=== PATIENT | female | born 1950 | race Caucasian/White ===

== ENCOUNTER 2017-02-16 07:46 | Outpatient (CLI) | payer MEDICARE ==
[2017-02-16 11:03] LABS: ALBUMIN/GLOBULIN RATIO 1.1 (1.0-2.2); BILIRUBIN,TOTAL 0.5 mg/dL (0.2-1.0); BUN - BLOOD UREA NITROGEN 16 mg/dL (6-20); CALCIUM 9.2 mg/dL (8.5-10.3); CARBON DIOXIDE - CO2 30 mmol/L (21-32); CHLORIDE 100 mmol/L (101-111); CHOL/HDL RATIO 5.9 (<4.4); CHOLESTEROL 248 mg/dL; CREATININE 0.7 mg/dL (0.4-1.0); GFR - MDRD 84 (>89); GLUCOSE 177 mg/dL (70-100); HDL CHOLESTEROL 42 mg/dL; POTASSIUM 4.1 mmol/L (3.5-5.0); SODIUM 138 mmol/L (135-145); TOTAL PROTEIN 7.6 g/dL (6.7-8.2); TRIGLYCERIDES 180 mg/dL; VLDL CHOLESTEROL 36 mg/dL
[2017-02-16 11:11] LABS: HEMOGLOBIN A1C 1.35 g/dL
== END 2017-02-16 07:47 | disposition home or self-care (01) ==
LOC: LAB.F 07:46
PROVIDERS: ATTEND Family Medicine
DX: I10 Essential (primary) hypertension (principal); E11.9 Type 2 diabetes mellitus without complications; E78.5 Hyperlipidemia, unspecified
CPT/HCPCS: 36415; 80053; 80061; 82043; 83036

== ENCOUNTER 2017-05-17 12:49 | Outpatient (CLI) | payer MEDICARE ==
[2017-05-17 18:49] LABS: HEMOGLOBIN A1C 0.95 g/dL
[2017-05-17 18:50] LABS: CALCIUM 9.4 mg/dL (8.5-10.3); CREATININE 0.8 mg/dL (0.4-1.0); POTASSIUM 4.2 mmol/L (3.5-5.0)
== END 2017-05-17 12:50 | disposition home or self-care (01) ==
LOC: LAB.F 12:49
PROVIDERS: ATTEND Family Medicine
DX: I10 Essential (primary) hypertension (principal); E11.9 Type 2 diabetes mellitus without complications
CPT/HCPCS: 36415; 80048; 83036

== ENCOUNTER 2017-08-23 07:12 | Outpatient (CLI) | payer MEDICARE ==
[2017-08-23 11:01] LABS: CALCIUM 9.5 mg/dL (8.5-10.3); CREATININE 0.8 mg/dL (0.4-1.0); POTASSIUM 4.2 mmol/L (3.5-5.0)
[2017-08-23 11:13] LABS: HEMOGLOBIN A1C 0.75 g/dL
== END 2017-08-23 07:13 | disposition home or self-care (01) ==
LOC: LAB.F 07:12
PROVIDERS: ATTEND Family Medicine
DX: I10 Essential (primary) hypertension (principal); E11.9 Type 2 diabetes mellitus without complications
CPT/HCPCS: 36415; 80048; 83036

== ENCOUNTER 2017-09-22 19:31 | Emergency (ER) | payer MEDICARE ==
--- NOTE | 2017-09-22 20:07 | ED Physician Documentation ---
PD HPI NVD - Stated complaint Stated Complaint: NAUSEA - Chief complaint Chief Complaint: General - History obtained from History obtained from: Patient - History of Present Illness Timing - onset: Enter time (17:30), Today Timing - details: Abrupt onset Pain level max: 4 Pain level now: 0 Associated symptoms: Chest pain Improved by: Other (no amelioraing factors) Worsened by: Other (no exacerbating factors) Similar symptoms before: Has not had sx before Recently seen: Not recently seen - Additonal information Additional information: immediately after dinner tonight, patient experienced nausea, "cold and sweating " (per patient), and epigastric/low mid-line chest discomfort. 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 She checked her blood sugar at approximately 6 PM, was 171, took 30 U insulin. Patient expresses strong suspicion that this was a reaction to shellfish in the bouillebaise she had tonight, although she has not had a shellfish allergy in the past. She says her relative recently had severe shellfish allergies despite not having them in the past and this is why she believes this is the cause of tonight's symptoms Review of Systems Constitutional: reports: Chills, Fatigue, Sweats. denies: Fever Cardiac: reports: Chest pain / pressure. denies: Palpitations, Pedal edema, Calf pain Respiratory: reports: Reviewed and negative GI: reports: Nausea. denies: Abdominal Pain, Vomiting, Constipation, Diarrhea : denies: Dysuria, Frequency PD PAST MEDICAL HISTORY - Past Medical History Cardiovascular: Hypertension, High cholesterol Respiratory: None Endocrine/Autoimmune: Type 2 diabetes GI: None : None HEENT: None Psych: None Musculoskeletal: Osteoarthritis Derm: None - Past Surgical History Past Surgical History: Yes Ortho: Other HEENT: Cataracts - Present Medications Home Medications: Ambulatory Orders Medication Instructions Recorded Confirmed HYDROcod/ACETAM 5/325 [Vicodin 1 - 2 ea PO Q6H PRN #15 tablet 05/27/14 12/05/14 5/325] Insulin NPH Human Isophane 30 units ABBOJECT TID 05/27/14 12/05/14 [Humulin N] Lisinopril 10 mg PO DAILY 05/27/14 12/05/14 [place]-3/Dha/Epa/Fish Oil [Fish Oil] 500 mg PO DAILY 05/27/14 12/05/14 metFORMIN [Glucophage] 1,000 mg PO BID 05/27/14 12/05/14 Aspirin [Aspir 81] 81 mg PO DAILY 06/07/14 12/05/14 HYDROcod/ACETAM 5/325 [Vicodin 1 ea PO Q6H PRN #15 tablet 12/05/14 5/325] Ibuprofen 600 mg PO Q6HR PRN #20 tablet 12/05/14 - Allergies Allergies/Adverse Reactions: Allergies Allergy/AdvReac Type Severity Reaction Status Date / Time Ejgcita-Lio-Fpp Reductase AdvReac Anxiety Verified 09/22/17 19:41 Inhibitor - Social History Does the pt smoke?: No Smoking Status: Never smoker Does the pt drink ETOH?: Yes Does the pt have substance abuse?: No PD ED PE NORMAL - Vitals Vital signs reviewed: Yes - General General: Alert and oriented X 3, No acute distress, Well developed/nourished - HEENT HEENT: Moist mucous membranes - Neck Neck: Supple, no meningeal sign - Cardiac Cardiac: RRR, No murmur, No gallop, No rub - Respiratory Respiratory: No respiratory distress, Clear bilaterally - Abdomen Abdomen: Soft, Non tender - Derm Derm: Normal color, Warm and dry, No rash - Extremities Extremities: No edema - Neuro Neuro: Alert and oriented X 3 Results - Vitals Vitals: Vital Signs - 24 hr 09/22/17 09/22/17 09/22/17 19:35 20:34 21:27 Temperature 36.3 C L Heart Rate 72 72 71 Respiratory 18 17 17 Rate Blood Pressure 145/69 H 127/52 L 123/55 L O2 Saturation 98 96 95 Oxygen O2 Source Room air - EKG (time done) No standard instances Rate: Rate (enter#) (66) Rhythm: NSR [place]: Normal Intervals: Wide QRS, RBBB QRS: Normal Ischemia: Normal ST segments - Labs Labs: Laboratory Tests 09/22/17 09/22/17 09/22/17 21:17 21:17 21:17 WBC 12.9 H RBC 4.30 Hgb 12.9 Hct 39.0 MCV 90.7 MCH 30.0 MCHC 33.1 RDW 13.3 Plt Count 383 MPV 6.6 L Neut # 10.2 H Lymph # 2.0 [place] # 0.6 Eos # 0.1 Baso # 0.1 Absolute Nucleated RBC 0.00 Nucleated RBC % 0.0 Sodium 137 Potassium 3.7 Chloride 100 L Carbon Dioxide 26 Anion Gap 11.0 BUN 19 Creatinine 0.6 Estimated GFR (MDRD) 100 Glucose 173 H Calcium 9.2 Troponin I < 0.04 PD MEDICAL DECISION MAKING - ED course Complexity details: reviewed results, re-evaluated patient, considered differential, d/w patient Departure - Departure Disposition: 01 Home, Self Care Clinical Impression: Nausea Condition: Good Instructions: ED Chest Pain Atypical Unkn Cause, ED Nausea Vomiting Follow-Up: NADEEN TOVAR MD [Primary Care Provider] - Comments: The cause of your symptoms is not clear at this time, but your test results are reassuring and do not indicate the need for admission to the hospital or further testing in the emergency department. You should follow-up with your primary care provider, as they might recommend further testing in the outpatient setting. Discharge Date/Time: 09/22/17 22:53
[2017-09-22 21:27] VITALS: BP 123/55
[2017-09-22 21:32] LABS: BASOPHILS # (AUTO) 0.1 10^3/uL (0.0-0.1); BASOPHILS % (AUTO) 0.9 %; EOSINOPHILS # (AUTO) 0.1 10^3/uL (0.0-0.7); EOSINOPHILS % (AUTO) 0.7 %; HGB - HEMOGLOBIN 12.9 g/dL (12.0-16.0); LYMPHOCYTES % (AUTO) 15.2 %; MEAN CORPUSCULAR HGB CONC 33.1 g/dL (32.0-36.0); MEAN CORPUSCULAR VOLUME 90.7 fL (81.0-99.0); MEAN PLATELET VOLUME 6.6 fL (7.9-10.8); MONOCYTES # (AUTO) 0.6 10^3/uL (0.0-1.0); MONOCYTES % (AUTO) 4.3 %; NEUTROPHILS # (AUTO) 10.2 10^3/uL (1.5-6.6); NEUTROPHILS % (AUTO) 78.9 %; RED CELL DISTRIBUTION WIDTH 13.3 % (12.0-15.0); UNCORRECTED WHITE BLOOD COUNT 12.9 x10^3/uL; WHITE BLOOD COUNT 12.9 x10^3/uL (4.8-10.8)
[2017-09-22 21:38] LABS: CALCIUM 9.2 mg/dL (8.5-10.3); CREATININE 0.6 mg/dL (0.4-1.0); POTASSIUM 3.7 mmol/L (3.5-5.0)
== END 2017-09-22 22:53 | disposition home or self-care (01) ==
LOC: ED 19:31
DX: R07.9 Chest pain, unspecified (principal); R11.0 Nausea; R10.13 Epigastric pain; I10 Essential (primary) hypertension; E78.00 Pure hypercholesterolemia, unspecified; E11.9 Type 2 diabetes mellitus without complications; Z79.4 Long term (current) use of insulin; M19.90 Unspecified osteoarthritis, unspecified site
CPT/HCPCS: 36415; 80048; 84484; 85025; 93005; 99283

== ENCOUNTER 2017-10-02 08:04 | Outpatient (CLI) | payer MEDICARE ==
--- NOTE | 2017-10-02 21:22 | Ultrasound Report ---
EXAM: ABDOMEN ULTRASOUND EXAM DATE: 10/02/2017 09:18 AM. CLINICAL HISTORY: ABDOMINAL PAIN. COMPARISON: None. TECHNIQUE: Real-time scanning was performed with static images obtained. FINDINGS: Liver: Normal in size and echotexture. 16 cm. Main portal vein flow: Hepatopetal. Gallbladder: There is cholelithiasis. The gallbladder is distended. There is no evidence of significa nt gallbladder wall thickening. Negative sonographic Valderrama sign. Biliary System: Common bile duct measures 4 mm. No intrahepatic or extrahepatic ductal dilatation. Pancreas: Visualized portion is unremarkable. Kidneys: Right: 12.0 cm longitudinally. Normal. No contour-deforming mass, stones, or hydronephrosis. There is a small exophytic cyst. Left: 11.2 cm longitudinally. Normal. No contour-deforming mass, stones, or hydronephrosis. Spleen: 9.5 cm. Normal in size and echotexture. Aorta and Inferior Vena Cava: Unremarkable. Other: None. IMPRESSION: 1. There is cholelithiasis. The gallbladder is filled with stones and sludge. There is no evidence of significant gallbladder wall thickening. Negative sonographic Valderrama sign. 2. No intra-or extrahepatic bile duct dilatation. [facility] Referring Provider Line: [phone] SITE ID: [id number]
== END 2017-10-02 08:05 | disposition home or self-care (01) ==
LOC: DI 08:04
PROVIDERS: ATTEND Family Medicine
DX: K80.20 Calculus of gallbladder without cholecystitis without obstruction (principal)
CPT/HCPCS: 76700

== ENCOUNTER 2018-03-13 02:38 | Day surgery (SDC) | payer MEDICARE ==
[2018-03-13] MEDS ORDERED: ONDANSETRON 4 MG/2 ML VIAL IVP STA ×2 (02:58→04:38)
[2018-03-13] MEDS ORDERED: SODIUM CHLORIDE 0.9% 1,000 ML IV ONE ×2 (02:58→04:40)
[2018-03-13] MEDS ORDERED: MORPHINE 10 MG/ML VIAL IVP STA ×3 (02:58→09:25)
--- NOTE | 2018-03-13 02:59 | ED Physician Documentation ---
PD HPI ABD PAIN - Stated complaint Stated Complaint: UPPER ABD PAIN - Chief complaint Chief Complaint: Abd Pain - History obtained from History obtained from: Patient - History of Present Illness Timing - onset: How many days ago (3) Timing - details: Gradual onset, Still present Quality: Cramping, Aching Location: RUQ Associated symptoms: Nausea, Vomiting. No: Fever Similar symptoms before: Work up / diagnostics, Treatment Recently seen: Not recently seen - Additional information Additional information: Patient is a 68 year old female with a history of diabetes, high blood pressure , and biliary colic who is presenting to the emergency department for abdominal pain. patient states that she was supposed to have her gallbladder removed but she put it off because her daughter was sick with the flu. Patient states that she was pretty good for awhile when she switched to a vegan diet. patient states that ever since her birthday she reverted back to a normal diet. Patient states that for the last 4 days she has had right upper quadrant pain, nausea and vomiting. Patient states that she has not eaten much due to the pain. Review of Systems Constitutional: reports: Chills, Sweats Cardiac: denies: Chest pain / pressure Respiratory: denies: Dyspnea GI: reports: Abdominal Pain, Nausea, Vomiting : denies: Dysuria, Frequency Neurologic: denies: Generalized weakness, Focal weakness Immunocompromised: denies: Immunocompromised PD PAST MEDICAL HISTORY - Past Medical History Cardiovascular: Hypertension, High cholesterol Respiratory: None Endocrine/Autoimmune: Type 2 diabetes GI: None : None HEENT: None Psych: Depression Musculoskeletal: Osteoarthritis Derm: None - Past Surgical History Past Surgical History: Yes Ortho: Other HEENT: Cataracts - Present Medications Home Medications: Ambulatory Orders Medication Instructions Recorded Confirmed Insulin NPH Human Isophane 20 units ABBOJECT BID 05/27/14 10/20/17 [Humulin N] Lisinopril 10 mg PO DAILY 05/27/14 10/20/17 [place]-3/Dha/Epa/Fish Oil [Fish Oil] 500 mg PO DAILY 05/27/14 10/20/17 metFORMIN [Glucophage] 1,000 mg PO BID 05/27/14 10/20/17 Aspirin [Aspir 81] 81 mg PO DAILY 06/07/14 10/20/17 Turmeric Root Extract [Turmeric] 500 mg PO DAILY 10/20/17 10/20/17 - Allergies Allergies/Adverse Reactions: Allergies Allergy/AdvReac Type Severity Reaction Status Date / Time Ysrngjb-Ehk-Kkp Reductase AdvReac Anxiety Verified 03/13/18 02:46 Inhibitor - Social History Does the pt smoke?: No Smoking Status: Never smoker Does the pt drink ETOH?: Yes Does the pt have substance abuse?: No Substance Use and Type: Marijuana PD ED PE NORMAL - Vitals Vital signs reviewed: Yes - General General: Alert and oriented X 3 - HEENT HEENT: Atraumatic, PERRL - Neck Neck: Supple, no meningeal sign - Cardiac Cardiac: RRR - Respiratory Respiratory: No respiratory distress - Derm Derm: Normal color, Warm and dry - Extremities Extremities: No deformity - Neuro Neuro: Alert and oriented X 3 Eye Opening: Spontaneous Motor: Obeys Commands Verbal: Oriented GCS Score: 15 PD ED PE EXPANDED - HEENT HEENT: Dry mucous membranes - Abdomen Abdomen: Tender to palpation, RUQ. No: Rebound, Guarding Results - Vitals Vitals: Vital Signs - 24 hr 03/13/18 02:43 Temperature 36.3 C L Heart Rate 84 Respiratory 16 Rate Blood Pressure 154/65 H O2 Saturation 98 Oxygen O2 Source Room air - EKG (time done) 0258 Rate: Rate (enter#) (77) Rhythm: NSR Intervals: RBBB Ischemia: Normal ST segments Compare to prior EKG: Unchanged from prior EKG - Labs Labs: Laboratory Tests 03/13/18 03/13/18 03/13/18 02:53 02:53 02:53 WBC 15.7 H RBC 4.35 Hgb 13.6 Hct 40.8 MCV 93.7 MCH 31.2 H MCHC 33.3 RDW 13.3 Plt Count 397 MPV 6.5 L Neut # (Auto) 11.9 H Lymph # (Auto) 2.4 [place] # (Auto) 1.3 H Eos # (Auto) 0.0 Baso # (Auto) 0.1 Absolute Nucleated RBC 0.00 Nucleated RBC % 0.0 Sodium 131 L Potassium 3.9 Chloride 92 L Carbon Dioxide 28 Anion Gap 11.0 BUN 10 Creatinine 0.6 Estimated GFR (MDRD) 100 Glucose 144 H Lactic Acid Calcium 9.2 Total Bilirubin 0.9 Direct Bilirubin 0.1 AST 16 ALT 22 Alkaline Phosphatase 80 Troponin I < 0.04 Total Protein 8.2 Albumin 3.8 Globulin 4.4 H Albumin/Globulin Ratio 0.9 L Lipase 27 Urine Color Urine Clarity Urine pH Ur Specific [place] Urine Protein Urine Glucose (UA) Urine Ketones Urine Occult Blood Urine Nitrite Urine Bilirubin Urine Urobilinogen Ur Leukocyte Esterase Urine RBC Urine WBC Ur Squamous Epith Cells Urine Bacteria Ur Microscopic Review 03/13/18 03/13/18 03:05 03:11 WBC RBC Hgb Hct MCV MCH MCHC RDW Plt Count MPV Neut # (Auto) Lymph # (Auto) [place] # (Auto) Eos # (Auto) Baso # (Auto) Absolute Nucleated RBC Nucleated RBC % Sodium Potassium Chloride Carbon Dioxide Anion Gap BUN Creatinine Estimated GFR (MDRD) Glucose Lactic Acid 0.9 Calcium Total Bilirubin Direct Bilirubin AST ALT Alkaline Phosphatase Troponin I Total Protein Albumin Globulin Albumin/Globulin Ratio Lipase Urine Color YELLOW Urine Clarity CLEAR Urine pH 5.5 Ur Specific [place] 1.025 Urine Protein NEGATIVE Urine Glucose (UA) NEGATIVE Urine Ketones >=80 H Urine Occult Blood NEGATIVE Urine Nitrite NEGATIVE Urine Bilirubin NEGATIVE Urine Urobilinogen 0.2 (NORMAL) Ur Leukocyte Esterase TRACE H Urine RBC 0-5 Urine WBC 6-10 H Ur Squamous Epith Cells MOD Squamous H Urine Bacteria Few Ur Microscopic Review INDICATED - Rads (name of study) ct abd pelvis Radiology: Final report received PD MEDICAL DECISION MAKING - ED course Complexity details: reviewed old records, reviewed results, re-evaluated patient , considered differential, d/w patient, d/w senior talent management consultant ED course: Patient was seen and examined at bedside. IV access was gained and labs were drawn. Patient was started on a fluid bolus and was treated with zofran and morphine. Imaging was ordered. When patient returned from imaging the results were reviewed. Patient was treated with toradol and additional fluids. Patient 's findings were consistent with acute cholecystitis. Dr. Steven, seasonal greenery bundler surgeon was contacted and the case was discussed with him. He stated that the patient should be treated with antibiotics and he would take her to the OR later today. - Sepsis Event Vital Signs: Vital Signs - 24 hr 03/13/18 02:43 Temperature 36.3 C L Heart Rate 84 Respiratory 16 Rate Blood Pressure 154/65 H O2 Saturation 98 Oxygen O2 Source Room air Departure - Departure Disposition: ED Transfer to [facility] Clinical Impression: Cholecystitis Condition: Stable
[2018-03-13 03:05] LABS: BASOPHILS # (AUTO) 0.1 10^3/uL (0.0-0.1); BASOPHILS % (AUTO) 0.6 %; EOSINOPHILS % (AUTO) 0.2 %; HGB - HEMOGLOBIN 13.6 g/dL (12.0-16.0); LYMPHOCYTES # (AUTO) 2.4 10^3/uL (1.5-3.5); MEAN CORPUSCULAR HEMOGLOBIN 31.2 pg (27.0-31.0); MEAN CORPUSCULAR HGB CONC 33.3 g/dL (32.0-36.0); MEAN CORPUSCULAR VOLUME 93.7 fL (81.0-99.0); MEAN PLATELET VOLUME 6.5 fL (7.9-10.8); MONOCYTES # (AUTO) 1.3 10^3/uL (0.0-1.0); MONOCYTES % (AUTO) 8.5 %; NEUTROPHILS # (AUTO) 11.9 10^3/uL (1.5-6.6); NEUTROPHILS % (AUTO) 75.7 %; PLT - PLATELET COUNT 397 10^3/uL (130-450); RED BLOOD COUNT 4.35 10^6/uL (4.20-5.40); RED CELL DISTRIBUTION WIDTH 13.3 % (12.0-15.0); WHITE BLOOD COUNT 15.7 x10^3/uL (4.8-10.8)
[2018-03-13 03:18] LABS: BILIRUBIN,URINE NEGATIVE (NEGATIVE); CLARITY,URINE CLEAR (CLEAR); GLUCOSE, URINE (UA) NEGATIVE (NEGATIVE); KETONES,URINE (UA) >=80 mg/dL (NEGATIVE); LEUKOCYTE ESTERASE, URINE TRACE (NEGATIVE); NITRITE,URINE NEGATIVE (NEGATIVE); OCCULT BLOOD,URINE NEGATIVE (NEGATIVE); PH,URINE 5.5 PH (5.0-7.5); PROTEIN,URINE NEGATIVE (NEGATIVE); UROBILINOGEN,URINE 0.2 (NORMAL) E.U./dL (NORMAL)
[2018-03-13 03:22] LABS: ALBUMIN 3.8 g/dL (3.2-5.5); ALBUMIN/GLOBULIN RATIO 0.9 (1.0-2.2); BILIRUBIN,DIRECT 0.1 mg/dL (0.1-0.5); BILIRUBIN,TOTAL 0.9 mg/dL (0.2-1.0); CALCIUM 9.2 mg/dL (8.5-10.3); CREATININE 0.6 mg/dL (0.4-1.0); TOTAL PROTEIN 8.2 g/dL (6.7-8.2)
[2018-03-13 03:25] LABS: BACTERIA,URINE Few /HPF (None Seen); RBC,URINE 0-5 /HPF (0-5); SQUAMOUS EPITHELIAL CELL,UR MOD Squamous (<= Few)
[2018-03-13] MEDS ORDERED: IOPAMIDOL-300 100 ML VIAL ONE (03:35)
[2018-03-13] MEDS ORDERED: IOPAMIDOL-300 100 ML VIAL IVP ONE (03:47)
--- NOTE | 2018-03-13 04:32 | CT Preliminary Report ---
Exam: CT ABDOMEN/PELVIS W/ IMPRESSION: 1. CT findings of acute cholecystitis. No pathologic biliary ductal dilation demonstrated at this akash e. 2. No bowel obstruction. Appendix is normal. Average retained colonic fecal material. No kidney stone or hydronephrosis. 3. Indeterminate bilateral adrenal nodules, measuring 2 cm on the right and 1.6 cm on the left. If th e patient has history of malignancy, further assessment could be considered with a PET CT. If there i s no history of prior malignancy, follow-up adrenal protocol CT recommended at 12 months. [facility] SITE ID: [id number]
[2018-03-13] MEDS ORDERED: KETOROLAC 60 MG/2 ML VIAL IVP STA (04:38)
[2018-03-13] MEDS ORDERED: PIPERACILLIN/TAZOBACTAM 3.375 GM in SODIUM CHLORIDE 0.9% MINIBAG 100 ML IV STA (05:51)
--- NOTE | 2018-03-13 06:01 | CT Report ---
EXAM: CT ABDOMEN AND PELVIS EXAM DATE: 03/13/2018 04:04 AM. CLINICAL HISTORY: Epigastric pain, vomiting bile. COMPARISONS: None. TECHNIQUE: Routine helical CT imaging was performed through the abdomen and pelvis. IV contrast: 100 mL Isovue 300. Enteric contrast: No. Reconstructions: Coronal and sagittal. In accordance with CT protocol optimization, one or more of the following dose reduction techniques w ere utilized for this exam: automated exposure control, adjustment of mA and/or KV based on patient s ize, or use of iterative reconstructive technique. FINDINGS: ABDOMEN: Liver: There is mild to moderate hepatic steatosis. Stomach/Distal Esophagus: No significant abnormality. Gallbladder: Distended gallbladder with pericholecystic stranding as well as apparent gallbladder wal l thickening. Slight amount of pericholecystic fluid is noted. Bile Ducts: No significant abnormality. Pancreas: No significant abnormality. Spleen: No significant abnormality. Kidneys: No suspicious solid appearing lesion. There is a 2.4 cm bilobed cyst arising laterally from the right mid to lower kidney. No hydronephrosis. Adrenals: Nodularity of the adrenals noted bilaterally, measuring up to 2 cm on the right (image 18 s eries 3) and up to 1.6 cm on the left (image 24 series 3). These are difficult to characterize on thi s exam. Bowel: No obstruction. Average fecal residual. Appendix: Normal. Lymph Nodes: No pathologically enlarged nodes. Vasculature: Normal caliber aorta. Moderate aortic and branch vessel atherosclerosis. Fluid: No significant free fluid. Abdominal Wall: No significant abnormality. Other: No significant abnormality. PELVIS: Uterus and Ovaries: No significant abnormality. Nonspecific calcification near the external cervical os. Bladder: No significant abnormality. Lymph Nodes: No pathologically enlarged nodes. Fluid: No significant free fluid. Other: None. BONES: No suspicious bony lesions. Moderate multilevel degenerative change within the spine. LOWER CHEST: No significant consolidation or effusion. IMPRESSION: 1. CT findings of acute cholecystitis. No pathologic biliary ductal dilation demonstrated at this akash e. 2. No bowel obstruction. Appendix is normal. Average retained colonic fecal material. No kidney stone or hydronephrosis. 3. Indeterminate bilateral adrenal nodules, measuring 2 cm on the right and 1.6 cm on the left. If th e patient has history of malignancy, further assessment could be considered with a PET CT. If there i s no history of prior malignancy, follow-up adrenal protocol CT recommended at 12 months. [facility] Referring Provider Line: [phone] SITE ID: [id number]
--- NOTE | 2018-03-13 10:13 | CONSULTATION NOTE ---
Referring Provider Name of Referring Provider:: Dr. Pritchard Consult Date: 03/13/18 Chief Complaint - Chief Complaint Chief Complaint: Postprandial RUQ pain History of Present Illness - Admitted From Admitted From:: NOT admitted - OUTPATIENT - History Obtained From Records Reviewed: Yes History obtained from: Patient and chart ([facility]) Exam Limitations: None - History of Present Illness HPI Comment/Other: This very pleasant 68-year-old female was evaluated in room 9 centers emergency department at the request of Dr. Pritchard. The patient had similar symptoms in October of this year when she was evaluated by Dr. Roger and scheduled for surgery. The patient canceled the surgery 2 days prior due to the fact that her daughter came home from college with the flu and she did not want to "take any chances." Back in October her symptoms occurred after a seafood plate and this time symptoms occurred after prime rib and wine. Initially in October she became a vegan and then when her birthday happened she started cheating and kept on cheating. The pain is described as sharp penetrating located in the right upper quadrant without alleviating factors. The pain bothers her enough that she is "scared of eating." Importantly, her last year of heart disease and since that occurred she has lost approximately 50 pounds. History - Past Medical History Cardiovascular: reports: Hypertension, High cholesterol Respiratory: reports: None Endocrine/Autoimmune: reports: Type 2 diabetes GI: reports: None : reports: None HEENT: reports: None Psych: reports: Depression Musculoskeletal: reports: Osteoarthritis Derm: reports: None MRSA Hx?: No - Past Surgical History Ortho: reports: Other HEENT: reports: Cataracts Meds/Allgy - Home Medications Home Medications: Ambulatory Orders Medication Instructions Recorded Confirmed Insulin NPH Human Isophane 20 units SUBQ BID 05/27/14 03/13/18 [Humulin N] Lisinopril 10 mg PO DAILY 05/27/14 03/13/18 metFORMIN [Glucophage] 1,000 mg PO BIDWM 05/27/14 03/13/18 Aspirin [Aspir 81] 81 mg PO DAILY 06/07/14 03/13/18 - Allergies Allergies/Adverse Reactions: Allergies Allergy/AdvReac Type Severity Reaction Status Date / Time Pjabena-Ced-Hxh Reductase AdvReac Anxiety Verified 03/13/18 02:46 Inhibitor Review of Systems - Constitutional Constitutional: denies: Fatigue, Fever, Chills, Malaise - Eyes Eyes: denies: Pain - Ears, Nose & Throat Ears, Nose & Throat: denies: Ear pain - Cardiovascular Cariovascular: denies: Palpitations, Chest pain - Respiratory Respiratory: denies: Cough, Sputum production - Gastrointestinal Gastrointestinal: reports: Abdominal pain (Right upper quadrant.), Reflux/ heartburn. denies: Rectal bleeding, Black stools, Bloody stools, Melvin blood emesis, Coffee grounds emesis - Genitourinary Genitourinary: denies: Dysuria - Neurological Neurological: denies: General weakness, Focal weakness Exam - Vital Signs Reviewed Vital Signs: Yes Vital Signs: Vital Signs x48h Temp Pulse Resp BP Pulse Ox 03/13/18 08:00 37.0 C 78 12 133/61 H 97 03/13/18 06:04 74 03/13/18 05:30 69 16 127/53 L 97 03/13/18 05:00 70 16 124/57 L 97 03/13/18 02:43 36.3 C L 84 16 154/65 H 98 - Physical Exam General Appearance: positive: Mild distress Eyes Bilateral: positive: No lid inflammation, Conjunctivae nml, No scleral icterus ENT: positive: Dry mucous membranes Neck: positive: Trachea midline Respiratory: positive: Chest non-tender, No respiratory distress, Breath sounds nml Cardiovascular: positive: Regular rate & rhythm Abdomen: positive: Tenderness (Right upper quadrant), Abnml bowel sounds ( Slightly decreased). negative: Hepatomegaly, Splenomegaly Skin: positive: Color nml Extremities: positive: Nml appearance Neurologic/Psychiatric: positive: Oriented x3 Conclusion/Plan - Diagnosis Diagnosis: Acute cholecystitis - Plan Plan: Laparoscopic cholecystectomy, possible open cholecystectomy, possible intra- operative cholangiogram, possible common bile duct exploration. The indications , procedure, alternatives including no surgery, ingestion of Actigall, possible risks including infection (deep or superficial), bleeding requiring transfusion (with all of its risks), common bile duct injury requiring repair and additional surgery, and were fully explained to the patient and all questions answered. I also explained the pathophysiology. I explained that following the surgery I did not want her lifting anything over 15 pounds for 6 weeks to allow for optimal healing and to decrease the likelihood that a hernia would occur. She works at the [employer] behind the [employer] All questions were fully answered. Verbal and written consent was obtained. The patient, in preparation for surgery will be nothing by mouth, and receive 2 gm of Cephalexin with induction. I asked her to contact me with any surgical questions and her concerns and she stated that she would. I asked her to let me know if there is any way we can make her stay at [facility] more comfortable and she stated that she would let me know. Please note that an assessment of her risk was done by Dr. Roger in October and this assessment is available in [employer]. It clearly shows that she is at increased risk for complications. The plan is to do this operation as an outpatient procedure and to discharge her home following the procedure. 45 minutes of [id number] time spent with the patient, over 80% in discussion, coordination of her care, and generating the required paperwork - Lab Results Lab results reviewed: Yes Fish Bones: 03/13/18 02:53 03/13/18 02:53 - Diagnostic Imaging Results Diagnostic Imaging Results: positive: Final report reviewed, Read independently - EKG Results EKG Interpreted Independently: No
[2018-03-13] MEDS ORDERED: BUPIVACAINE 0.5% PF 30 ML VIAL ONE (10:38)
[2018-03-13] MEDS ORDERED: LACTATED RINGERS 1,000 ML IV ONE ×2 (10:58→12:47)
[2018-03-13] MEDS ORDERED: BUPIVACAINE 0.5% PF 30 ML VIAL SUBQ ONE (11:21)
[2018-03-13] MEDS ORDERED: fentaNYL 250 MCG/5 ML VIAL IVP ONE (13:00)
[2018-03-13] MEDS ORDERED: MIDAZOLAM 2 MG/2 ML VIAL IVP ONE (13:00)
[2018-03-13] MEDS ORDERED: ROCURONIUM 50 MG/5 ML VIAL IVP ONE (13:00)
[2018-03-13] MEDS ORDERED: PROPOFOL 200 MG/20 ML VIAL IVP ONE (13:00)
--- NOTE | 2018-03-13 13:20 | OPERATIVE REPORT ---
Operative Report - General Procedure Date: 03/13/18 Planned Procedure: Laparoscopic cholecystectomy, possible open cholecystectomy, possible commo Pre-Op Diagnosis: Acute cholecystitis Procedure Performed: Laparoscopic cholecystectomy Umbilical herniorrhaphy Post Op Diagnosis: Acute and chronic cholecystitis, umbilical hernia - Procedure Note Primary Surgeon: Antony Krause MD Anesthesia Provider: René Jaramillo CRNA Anesthesia Technique: General ET tube, Local (30 mL half percent Marcaine) IV Fluids (mL): 1,100 Estimated Blood Loss (mL): 50 Complications: None. - Other Other Information/Narrative: OPERATIVE DESCRIPTION/REPORT: After verbal and written informed consent was obtained detailing the risks of infection, bleeding with all of its risks including transfusion, common bile duct injury, and the patient was brought to the operative suite and placed in the supine position on the operating room table. Monitoring devices were applied along with TEDs and pneumatic compressive stockings. Care was taken to avoid pressure points. Prophylactic antibiotics were given. An adequate level of general endotracheal anesthesia was established by René Jaramillo CRNA. The abdomen was then prepped with ChloraPrep and draped in a sterile fashion. A "time in" then confirmed that the patient was identified with 3 identifiers (name, date and medical record number), the history and physical was in the chart, the signed consent confirming the procedure was in the chart, the patient was in the correct position, the aforementioned prophylactic measures were in place or given, we had the correct personnel and equipment to complete the procedure and that anesthesia, surgery and nursing were given an opportunity to express any concerns. The initial incision was just above the umbilicus and dissection to the linea alba was completed using blunt dissection. A small umbilical hernia was noted and was used to enter the abdomen. The peritoneum was grasped and incised using Metzenbaum scissors. In this location, a 12 mm blunt tipped, balloon tipped port was placed and the balloon was inflated to keep the port in position. The abdominal cavity was insufflated with carbon dioxide to steady- state pressure of 15 mmHg. Three additional 5 mm ports were placed in standard location for laparoscopic cholecystectomy (subxiphoid and 2 right subcostal) under direct vision of the 30 degree laparoscope and without incident. The patient was then placed in reverse Trendelenburg position and was rotated slightly to their left. The gallbladder was completely covered by adhesed omentum as well as the duodenum. Photographs were taken. These adhesions were taken down using tractioncountertraction. The gallbladder was very thick walled and distended and could not be grasped. Due to this reason, a laparoscopic needle was inserted into the gallbladder and very thick brown green bile was removed. The bowel was so thick that it was taking a very long time to empty the gallbladder. As such I made a cholecystostomy with the Bovie and inserted the suction drum straightener into this removing the bile. This left me with strictly a very thick walled gallbladder with stones. The gallbladder fundus was grasped with an atraumatic grasper. Multiple adhesions had to be taken down by blunt and sharp dissection along with electrocautery. Eventually, we identified the infundibulum, and this was then grasped and retracted inferior and laterally. Dissection was then begun in the angle of Calot. The cystic duct and (slightly medially and posteriorly) cystic artery were clearly identified. The critical view was obtained. Two clips proximally and one clip distally were used to control both the cystic duct and cystic artery. The clips were carefully placed to avoid occluding the juncture with the common bile duct. Both the cystic duct and then the cystic artery were then transected with laparoscopic court. The gallbladder was then removed from its fossa in a retrograde fashion using electrocautery. With the 30 degree 5 mm scope in the subxiphoid position, the gallbladder was placed in an EndoCatch bag to be extracted through the 12 mm port site. I irrigated the right upper quadrant with a 2 liters of warm sterile saline, and the area was aspirated dry. I inspected the gallbladder fossa and there was no bleeding or bile leak. Clips on the cystic duct and cystic artery appeared to be secure. I briefly visually explored the abdomen. There was no other evidence of overt pathology. I injected the port sites at the peritoneal, fascial, and skin levels under direct vision with 0.5% Marcaine. The umbilical incision at the skin and fascial level had to be lengthened in order to remove this very thick-walled gallbladder. All ports and the EndoCatch containing the gallbladder were removed. Following gallbladder removal, the remaining carbon dioxide was expelled from the abdomen. The fascia at the umbilicus was reapproximated using a running 0 Vicryl sutures thus repairing the umbilical hernia. The skin at each port site was approximated using a subcuticular 4-0 Monocryl. The surgical count of instruments, needles and sponges was reported as correct twice. Mastisol, Steri -Strips and sterile surgical dressings were applied. The patient was then awakened from anesthesia, extubated, and having tolerated the procedure well, was transported to the recovery room. No complications were encountered. A "time out" confirmed the operation performed, the fluids given, the estimated blood loss and anesthesia, surgery and nursing were given an opportunity to express any concerns.
[2018-03-13 13:33] VITALS: BP 125/52
[2018-03-13] MEDS ORDERED: oxyCOD/ACETAMIN 5 MG/325 MG TABLET PO ONE (13:41)
== END 2018-03-13 09:31 | disposition home or self-care (01) ==
LOC: ED 02:38 → SDS 09:30
PROVIDERS: ATTEND Surgery
PROC: 0FT44ZZ Resection of Gallbladder, Percutaneous Endoscopic Approach (ICD-10-PCS; principal; 2018-03-13 10:00)
DX: K80.12 Calculus of gallbladder with acute and chronic cholecystitis without obstruction (principal); K42.9 Umbilical hernia without obstruction or gangrene; I10 Essential (primary) hypertension; E11.9 Type 2 diabetes mellitus without complications; E78.00 Pure hypercholesterolemia, unspecified; Z79.4 Long term (current) use of insulin; Z79.84 Long term (current) use of oral hypoglycemic drugs; Z79.82 Long term (current) use of aspirin
CPT/HCPCS: 36415; 47562; 74177; 80053; 81001; 82248; 83605; 83690; 84484; 85025; 93005; 96361; 96365; 96375; 96376; 99284; A9270; J3010; J7120; Q9967; 81003; 88304; 99283

== ENCOUNTER 2018-03-21 10:23 | Outpatient (CLI) | payer MEDICARE ==
[2018-03-21 10:46] LABS: BASOPHILS # (AUTO) 0.1 10^3/uL (0.0-0.1); BASOPHILS % (AUTO) 0.9 %; EOSINOPHILS # (AUTO) 0.1 10^3/uL (0.0-0.7); EOSINOPHILS % (AUTO) 0.9 %; HGB - HEMOGLOBIN 12.6 g/dL (12.0-16.0); LYMPHOCYTES # (AUTO) 3.5 10^3/uL (1.5-3.5); MEAN CORPUSCULAR HEMOGLOBIN 30.7 pg (27.0-31.0); MEAN CORPUSCULAR HGB CONC 33.3 g/dL (32.0-36.0); MEAN CORPUSCULAR VOLUME 92.3 fL (81.0-99.0); MEAN PLATELET VOLUME 6.1 fL (7.9-10.8); MONOCYTES # (AUTO) 1.1 10^3/uL (0.0-1.0); MONOCYTES % (AUTO) 8.4 %; NEUTROPHILS # (AUTO) 7.8 10^3/uL (1.5-6.6); NEUTROPHILS % (AUTO) 61.8 %; PLT - PLATELET COUNT 583 10^3/uL (130-450); RED BLOOD COUNT 4.09 10^6/uL (4.20-5.40); RED CELL DISTRIBUTION WIDTH 13.4 % (12.0-15.0); WHITE BLOOD COUNT 12.6 x10^3/uL (4.8-10.8)
[2018-03-21] MEDS ORDERED: IOPAMIDOL-300 50 ML VIAL ONE (10:50)
[2018-03-21] MEDS ORDERED: IOPAMIDOL-300 100 ML VIAL ONE (10:50)
[2018-03-21 11:00] LABS: ALBUMIN 3.7 g/dL (3.2-5.5); ALBUMIN/GLOBULIN RATIO 0.8 (1.0-2.2); BILIRUBIN,TOTAL 0.5 mg/dL (0.2-1.0); CALCIUM 9.4 mg/dL (8.5-10.3); CREATININE 0.6 mg/dL (0.4-1.0); TOTAL PROTEIN 8.4 g/dL (6.7-8.2)
[2018-03-21 11:07] LABS: HEMOGLOBIN A1C 0.6 g/dL; HEMOGLOBIN A1C % 6.1 % (4.6-6.2)
[2018-03-21] MEDS ORDERED: IOPAMIDOL-300 100 ML VIAL IVP ONE (12:14)
[2018-03-21] MEDS ORDERED: IOPAMIDOL-300 50 ML VIAL PO ONE (12:14)
--- NOTE | 2018-03-21 13:55 | CT Report ---
Procedure Date: 03/21/2018 Accession Number: [id number] / [id number] Procedure: CT - Abdomen/Pelvis W/ CPT Code: FULL RESULT: EXAM: Abdomen/Pelvis W/ DATE: 03/21/2018 12:23 PM CLINICAL HISTORY: RUQ ABDOMINAL PAIN COMPARISON: 03/13/2018 CT TECHNIQUE: Routine helical CT imaging was performed through the abdomen and pelvis. IV contrast: 100 cc Isovue-300. Enteric contrast: Yes. Reconstructions: Coronal and sagittal. In accordance with CT protocol optimization, one or more of the following dose reduction techniques were utilized for this exam: automated exposure control, adjustment of mA and/or KV based on patient size, or use of iterative reconstructive technique. FINDINGS: Lung Bases: Unremarkable. Gallbladder/Bile Ducts: Interval cholecystectomy with new surgical clips. Liver: Fatty infiltration as before. New nonenhancing fluid collection within the liver inferiorly near the falciform ligament measuring 5.1 x 4.2 cm axial by 4.4 cm in vertical question biloma, seroma or abscess. Stranding in the perihepatic fat adjacent to this collection may be related to inflammation or postoperative change. A tiny focus of air along the anterior wall of the collection may be postsurgical. Common bile duct measures 6 to 7 mm with questionable wall thickening; pancreatic duct is not dilated. Spleen, Pancreas: Normal. Adrenal Glands: Stable nodularity.. Kidneys: No solid masses or hydronephrosis. Right cyst as before. Peritoneal Cavity/Bowel: Mild stranding right upper quadrant may be secondary to recent surgery versus inflammation. No adenopathy. Pelvic Organs: Stable. Calcification near the external cervical os as before. Vasculature: No aneurysms or other significant abnormality. Bones: Degenerative change and dextroscoliosis as before. Other: None. IMPRESSION: Interval cholecystectomy since 03/13/2018. New 5.1 x 4.2 x 4.4 cm fluid collection in the inferior liver adjacent to the falciform ligament may represent a biloma, early abscess, or seroma. Adjacent stranding in the perihepatic fat secondary to surgery or inflammation. Otherwise stable.
== END 2018-03-21 10:24 | disposition home or self-care (01) ==
LOC: DI 10:23
PROVIDERS: ATTEND Surgery
DX: R10.11 Right upper quadrant pain (principal); E11.9 Type 2 diabetes mellitus without complications; Z90.49 Acquired absence of other specified parts of digestive tract; K76.89 Other specified diseases of liver
CPT/HCPCS: 36415; 74177; 80053; 83036; 85025; Q9967

== ENCOUNTER 2018-03-22 09:06 | Outpatient (CLI) | payer MEDICARE ==
--- NOTE | 2018-03-22 12:37 | Nuclear Medicine Report ---
Procedure Date: 03/22/2018 Accession Number: [id number] / [id number] Procedure: NM - Hepatobiliary HIDA w/o Rx CPT Code: FULL RESULT: EXAM: HEPATOBILIARY SCAN EXAM DATE: 03/22/2018 11:15 AM. CLINICAL HISTORY: ACQUIRED ABSENCE OF OTHER SPECIFIED PARTS OF DIGESTIVE. COMPARISON: CT 03/21/2018 TECHNIQUE: Following the intravenous administration of 4.9 mCi of Tc99m Mebrofenin, a hepatobiliary scan was done centered on the right upper quadrant region in multiple sequential images and projections. Morphine sulfate given: No. Four-hour delayed images performed: No. FINDINGS: Normal extraction of tracer from the blood pool indicating normal hepatocellular function. The liver size and shape is grossly within normal limits. Appearance of tracer in the biliary tree as early as 10 minutes, within normal limits. The gallbladder is not visualized, compatible with reported history of cholecystectomy. Appearance of tracer in the small bowel as early as 10 minutes, within normal limits. No evidence of enteric reflux into the stomach. No significant collection of tracer remaining in the common bile duct by the end of the study. No abnormal radiotracer accumulation in the region of the fluid collection at the inferior liver adjacent to the falciform ligament identified by comparison CT. No evidence of free peritoneal radiotracer accumulation. IMPRESSION: 1. No scintigraphic evidence of active bile leak. 2. Patent common bile duct. RADIA
== END 2018-03-22 09:07 | disposition home or self-care (01) ==
LOC: DI 09:06
PROVIDERS: ATTEND Surgery
DX: Z90.49 Acquired absence of other specified parts of digestive tract (principal)
CPT/HCPCS: 78226

== ENCOUNTER 2018-03-25 10:06 | Outpatient (CLI) | payer MEDICARE ==
[2018-03-25 17:41] LABS: BASOPHILS # (AUTO) 0.1 10^3/uL (0.0-0.1); BASOPHILS % (AUTO) 1.1 %; EOSINOPHILS # (AUTO) 0.3 10^3/uL (0.0-0.7); HGB - HEMOGLOBIN 12.2 g/dL (12.0-16.0); LYMPHOCYTES # (AUTO) 2.5 10^3/uL (1.5-3.5); LYMPHOCYTES % (AUTO) 34.4 %; MEAN CORPUSCULAR HEMOGLOBIN 31.1 pg (27.0-31.0); MEAN CORPUSCULAR HGB CONC 33.1 g/dL (32.0-36.0); MEAN CORPUSCULAR VOLUME 93.8 fL (81.0-99.0); MEAN PLATELET VOLUME 6.7 fL (7.9-10.8); MONOCYTES # (AUTO) 0.6 10^3/uL (0.0-1.0); MONOCYTES % (AUTO) 8.5 %; NEUTROPHILS # (AUTO) 3.8 10^3/uL (1.5-6.6); PLT - PLATELET COUNT 628 10^3/uL (130-450); RED BLOOD COUNT 3.93 10^6/uL (4.20-5.40); RED CELL DISTRIBUTION WIDTH 13.1 % (12.0-15.0); WHITE BLOOD COUNT 7.2 x10^3/uL (4.8-10.8)
== END 2018-03-25 10:07 | disposition home or self-care (01) ==
LOC: LAB.F 10:06
PROVIDERS: ATTEND Surgery
DX: R10.9 Unspecified abdominal pain (principal)
CPT/HCPCS: 36415; 85025

== ENCOUNTER → 2018-08-01 | Outpatient (CLI) | payer MEDICARE ==
[2018-08-01 17:22] LABS: BILIRUBIN,URINE NEGATIVE (NEGATIVE); GLUCOSE, URINE (UA) NEGATIVE (NEGATIVE); KETONES,URINE (UA) NEGATIVE (NEGATIVE); LEUKOCYTE ESTERASE, URINE LARGE (NEGATIVE); NITRITE,URINE POSITIVE (NEGATIVE); OCCULT BLOOD,URINE MODERATE (NEGATIVE); PROTEIN,URINE 100 mg/dL (NEGATIVE); UROBILINOGEN,URINE 1 (NORMAL) E.U./dL (NORMAL)
[2018-08-01 17:55] LABS: BACTERIA,URINE Many /HPF (None Seen); CLARITY,URINE CLOUDY (CLEAR); RBC,URINE 0-5 /HPF (0-5); SQUAMOUS EPITHELIAL CELL,UR NONE SEEN (<= Few)
== END ==
LOC: LAB.R 11:18
PROVIDERS: ATTEND Nurse Practitioner Family
DX: N39.0 Urinary tract infection, site not specified (principal)
CPT/HCPCS: 81001; 87086; 87181

== ENCOUNTER 2018-08-04 20:36 | Emergency (ER) | payer MEDICARE ==
[2018-08-04 21:05] LABS: BILIRUBIN,URINE NEGATIVE (NEGATIVE); GLUCOSE, URINE (UA) NEGATIVE (NEGATIVE); KETONES,URINE (UA) NEGATIVE (NEGATIVE); LEUKOCYTE ESTERASE, URINE NEGATIVE (NEGATIVE); NITRITE,URINE NEGATIVE (NEGATIVE); OCCULT BLOOD,URINE TRACE-LYSE (NEGATIVE); PROTEIN,URINE NEGATIVE (NEGATIVE); UROBILINOGEN,URINE 0.2 (NORMAL) E.U./dL (NORMAL)
[2018-08-04 21:08] LABS: CLARITY,URINE CLEAR (CLEAR)
--- NOTE | 2018-08-04 21:30 | ED Physician Documentation ---
PD HPI ABD PAIN - Stated complaint Stated Complaint: TORSO PX - Chief complaint Chief Complaint: Abd Pain - History obtained from History obtained from: Patient - History of Present Illness Timing - onset: How many days ago (3) Timing - duration: Days Timing - details: Gradual onset, Still present, Waxing and waning Quality: Cramping, Sharp, Pain Location: LLQ Radiation: Left flank Improved by: Meds Associated symptoms: Nausea, Dysuria, Other (protrusion of the bladder with valsalva). No: Vomiting, Diarrhea, Constipation Similar symptoms before: Diagnosis (UTI) Recently seen: Clinic - Additional information Additional information: 68-year-old female is recently returned from [place] has developed signs and symptoms of urinary tract infection with urinary urgency frequency and dysuria and was seen in the clinic and treated. She started antibiotics 4 days ago she felt that she had some improvement in her symptoms and then felt her symptoms returned. She is having some cramping type pain associated with her urination and radiating into her left flank. She also is complaining of some protrusion of a mass from her vaginal area when she bears down. She has had this present for months and had gone into be seen at the [facility] in January and was not able to be seen secondary to another emergency. She has not sought treatment since. She did go into the clinic on Wednesday and the urine there has grown out an E. coli sensitive to Cipro and she was placed on Cipro. Review of Systems Constitutional: reports: Chills, Fatigue. denies: Fever Eyes: denies: Decreased vision Ears: denies: Ear pain Nose: denies: Rhinorrhea / runny nose, Congestion Throat: denies: Sore throat Cardiac: denies: Chest pain / pressure, Palpitations Respiratory: denies: Dyspnea, Cough GI: reports: Abdominal Pain, Nausea, Constipation, Diarrhea. denies: Vomiting : reports: Dysuria, Frequency Skin: denies: Rash Musculoskeletal: reports: Back pain. denies: Neck pain, Extremity pain Neurologic: denies: Generalized weakness, Focal weakness, Numbness PD PAST MEDICAL HISTORY - Past Medical History Past Medical History: Yes Cardiovascular: Hypertension, High cholesterol Respiratory: None Endocrine/Autoimmune: Type 2 diabetes GI: None : None HEENT: None Psych: Depression Musculoskeletal: Osteoarthritis Derm: None - Past Surgical History Past Surgical History: Yes Ortho: Other HEENT: Cataracts - Present Medications Home Medications: Ambulatory Orders Medication Instructions Recorded Confirmed Insulin NPH Human Isophane 20 units SUBQ BID 05/27/14 03/13/18 [Humulin N] RX: Lisinopril 10 mg PO DAILY 05/27/14 03/13/18 RX: metFORMIN [Glucophage] 1,000 mg PO BIDWM 05/27/14 03/13/18 Aspirin [Aspir 81] 81 mg PO DAILY 06/07/14 03/13/18 Ciprofloxacin HCl [Cipro] 500 mg PO 08/04/18 - Allergies Allergies/Adverse Reactions: Allergies Allergy/AdvReac Type Severity Reaction Status Date / Time [id number]-[id number] Reductase AdvReac Anxiety Verified 08/04/18 20:49 Inhibitor - Social History Does the pt smoke?: No Smoking Status: Never smoker Does the pt drink ETOH?: Yes Does the pt have substance abuse?: No - POLST Patient has POLST: No PD ED PE NORMAL - Vitals Vital signs reviewed: Yes (normal ) - General General: Alert and oriented X 3, No acute distress, Well developed/nourished - HEENT HEENT: Atraumatic, PERRL, EOMI - Neck Neck: Supple, no meningeal sign - Cardiac Cardiac: RRR, No murmur - Respiratory Respiratory: No respiratory distress, Clear bilaterally - Abdomen Abdomen: Normal bowel sounds, Soft, Non tender, Non distended, No organomegaly - Female Female : 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 (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), Other (bladder prolapses with valsalva) - Back Back: No CVA TTP, No spinal TTP - Derm Derm: Normal color, Warm and dry, No rash - Extremities Extremities: No deformity, No edema - Neuro Neuro: Alert and oriented X 3, electric serviceman 2-12 intact, No motor deficit, No sensory deficit, Normal speech Eye Opening: Spontaneous Motor: Obeys Commands Verbal: Oriented GCS Score: 15 - Psych Psych: Normal mood, Normal affect Results - Vitals Vitals: Vital Signs - 24 hr 08/04/18 08/05/18 20:45 00:11 Temperature 36.2 C L 36.2 C L Heart Rate 91 94 Respiratory 18 16 Rate Blood Pressure 131/65 H 149/60 H O2 Saturation 96 99 Oxygen O2 Source Room air - Labs Labs: Laboratory Tests 08/04/18 08/04/18 08/04/18 21:00 23:09 23:09 WBC 9.3 RBC 4.29 Hgb 13.5 Hct 38.8 MCV 90.3 MCH 31.4 H MCHC 34.7 RDW 13.4 Plt Count 382 MPV 6.6 L Neut # (Auto) 4.7 Lymph # (Auto) 2.9 [place] # (Auto) 1.5 H Eos # (Auto) 0.2 Baso # (Auto) 0.1 Absolute Nucleated RBC 0.00 Nucleated RBC % 0.0 Sodium 135 Potassium 5.2 H Chloride 94 L Carbon Dioxide 31 Anion Gap 10.0 BUN 23 H Creatinine 1.1 H Estimated GFR (MDRD) 50 L Glucose 151 H Lactic Acid Calcium 9.7 Total Bilirubin 0.4 AST 33 ALT 52 Alkaline Phosphatase 122 H Total Protein 7.6 Albumin 3.5 Globulin 4.1 Albumin/Globulin Ratio 0.9 L Lipase 35 Urine Color YELLOW Urine Clarity CLEAR Urine pH 6.0 Ur Specific [place] 1.010 Urine Protein NEGATIVE Urine Glucose (UA) NEGATIVE Urine Ketones NEGATIVE Urine Occult Blood TRACE-LYSE Urine Nitrite NEGATIVE Urine Bilirubin NEGATIVE Urine Urobilinogen 0.2 (NORMAL) Ur Leukocyte Esterase NEGATIVE Ur Microscopic Review NOT INDICATED Urine Culture Comments NOT INDICATED 08/04/18 23:09 WBC RBC Hgb Hct MCV MCH MCHC RDW Plt Count MPV Neut # (Auto) Lymph # (Auto) [place] # (Auto) Eos # (Auto) Baso # (Auto) Absolute Nucleated RBC Nucleated RBC % Sodium Potassium Chloride Carbon Dioxide Anion Gap BUN Creatinine Estimated GFR (MDRD) Glucose Lactic Acid 1.0 Calcium Total Bilirubin AST ALT Alkaline Phosphatase Total Protein Albumin Globulin Albumin/Globulin Ratio Lipase Urine Color Urine Clarity Urine pH Ur Specific [place] Urine Protein Urine Glucose (UA) Urine Ketones Urine Occult Blood Urine Nitrite Urine Bilirubin Urine Urobilinogen Ur Leukocyte Esterase Ur Microscopic Review Urine Culture Comments - Rads (name of study) CT abdomen and pelvis without Radiology: Prelim report reviewed (Impression: 1. Mild left hydronephrosis and hydroureter without obstructing stone. Diffuse fat stranding involving the left pelvic sidewall surrounding the left ovary and distal left ureter possibilities include ovarian or ureteral inflammation and edema from vascular compromise.), EMP read indepedently, See rad report Procedures - Bedside sono Bedside sono by EMP: With use of bedside ultrasound the left kidney is imaged there is evidence of hydronephrosis and the kidney is sonographically nontender. PD MEDICAL DECISION MAKING - ED course Complexity details: reviewed old records, reviewed results, re-evaluated patient, considered differential, d/w patient ED course: 68 y/o female with a recent UTI has evidence today that the infection is resolved. She has some unusual pain in the left lower abdomen and mild hydro with some inflammation to the left ovary/ureter on CT scan. She has benign blood work with normal lactate. I am uncertain of what to make of the findings on CT. She does not appear ill and is not in pain at this time. She does have a bladder prolapse that may be accounting for some symptoms and I have reached out to Dr. Goodwin and expressed my concerns and he graciously agrees to follow up on the patient in the clinic regarding her prolapse. Departure - Departure Disposition: 01 Home, Self Care Clinical Impression: Cystocele with prolapse Instructions: Pelvic Organ Prolapse, Prolapse Surg Pelvic Organ Follow-Up: Juan Pablo Goodwin MD [Provider Admit Priv/Credential] - Discharge Date/Time: 08/05/18 00:12
--- NOTE | 2018-08-04 22:19 | CT Report ---
Reason: left flank pain Procedure Date: 08/04/2018 Accession Number: [id number] / [id number] Procedure: CT - Abdomen/Pelvis W/O CPT Code: FULL RESULT: EXAM: CT ABDOMEN AND PELVIS (CT KUB) EXAM DATE: 08/04/2018 09:53 PM. CLINICAL HISTORY: Left flank pain. Chills. COMPARISONS: ABDOMEN/PELVIS W/ 03/21/2018 12:12 PM. TECHNIQUE: Routine axial helical CT imaging was performed through the abdomen and pelvis without IV contrast. Reconstructions: Coronal and sagittal. In accordance with CT protocol optimization, one or more of the following dose reduction techniques were utilized for this exam: automated exposure control, adjustment of mA and/or KV based on patient size, or use of iterative reconstructive technique. FINDINGS: Lung Bases: Unremarkable. Right Kidney/Ureter: Stable lateral lower renal cyst with minimal wall calcification. No stones, hydronephrosis, or hydroureter. Mild perinephric fat stranding. Left Kidney/Ureter: No stones. Mild hydronephrosis and hydroureter. No obstructing stones identified. Mild perinephric fat stranding. Other Solid Organs: Stable mild bilateral adrenal nodular hypertrophy, otherwise images of the solid organs are grossly unremarkable. Gallbladder/Bile Ducts: Cholecystectomy. No dilated ducts. Peritoneal Cavity: No free fluid, free air or nereyda adenopathy. Bowel is grossly unremarkable. Normal appendix noted. Pelvic Organs: The reproductive organs and bladder are unremarkable. There is diffuse fat stranding involving the left pelvic sidewall surrounding the distal left ureter and the left ovary. Vasculature: Unremarkable. Other: Mild S-shaped scoliosis. IMPRESSION: 1. Mild left hydronephrosis and hydroureter without obstructing stone. 2. Diffuse fat stranding involving the left pelvic sidewall surrounding the left ovary and distal left ureter. Possibilities include ovarian or ureteral inflammation and edema from vascular compromise. RADIA
[2018-08-04 23:27] LABS: BASOPHILS # (AUTO) 0.1 10^3/uL (0.0-0.1); BASOPHILS % (AUTO) 0.9 %; EOSINOPHILS # (AUTO) 0.2 10^3/uL (0.0-0.7); EOSINOPHILS % (AUTO) 1.7 %; HGB - HEMOGLOBIN 13.5 g/dL (12.0-16.0); LYMPHOCYTES # (AUTO) 2.9 10^3/uL (1.5-3.5); LYMPHOCYTES % (AUTO) 30.7 %; MEAN CORPUSCULAR HEMOGLOBIN 31.4 pg (27.0-31.0); MEAN CORPUSCULAR HGB CONC 34.7 g/dL (32.0-36.0); MEAN CORPUSCULAR VOLUME 90.3 fL (81.0-99.0); MEAN PLATELET VOLUME 6.6 fL (7.9-10.8); MONOCYTES # (AUTO) 1.5 10^3/uL (0.0-1.0); MONOCYTES % (AUTO) 16.3 %; NEUTROPHILS # (AUTO) 4.7 10^3/uL (1.5-6.6); NEUTROPHILS % (AUTO) 50.4 %; PLT - PLATELET COUNT 382 10^3/uL (130-450); RED BLOOD COUNT 4.29 10^6/uL (4.20-5.40); RED CELL DISTRIBUTION WIDTH 13.4 % (12.0-15.0); WHITE BLOOD COUNT 9.3 x10^3/uL (4.8-10.8)
[2018-08-04 23:29] LABS: ALBUMIN 3.5 g/dL (3.2-5.5); ALBUMIN/GLOBULIN RATIO 0.9 (1.0-2.2); BILIRUBIN,TOTAL 0.4 mg/dL (0.2-1.0); CALCIUM 9.7 mg/dL (8.5-10.3); CREATININE 1.1 mg/dL (0.4-1.0); TOTAL PROTEIN 7.6 g/dL (6.7-8.2)
[2018-08-05 00:12] VITALS: BP 149/60
== END 2018-08-05 00:12 | disposition home or self-care (01) ==
LOC: ED 20:36
DX: N81.4 Uterovaginal prolapse, unspecified (principal); E11.9 Type 2 diabetes mellitus without complications; I10 Essential (primary) hypertension; E78.00 Pure hypercholesterolemia, unspecified; Z79.4 Long term (current) use of insulin
CPT/HCPCS: 36415; 74176; 80053; 81001; 81003; 83605; 83690; 85025; 87086; 99283; 99284

== ENCOUNTER 2018-08-05 09:22 | Emergency (ER) | payer MEDICARE ==
[2018-08-05 09:42] VITALS: BP 100/68
--- NOTE | 2018-08-05 11:15 | ED Physician Documentation ---
ED Addendum - Addendum Addendum: The patient left without being seen, I did not participate in the care of this patient 08/05/18 11:15
== END 2018-08-05 11:22 | disposition left against medical advice (07) ==
LOC: ED 09:22
DX: Z53.21 Procedure and treatment not carried out due to patient leaving prior to being seen by health care provider (principal)

== ENCOUNTER 2018-08-11 07:18 | Outpatient (CLI) | payer MEDICARE ==
[2018-08-11 10:53] LABS: ALBUMIN 3.5 g/dL (3.2-5.5); ALBUMIN/GLOBULIN RATIO 0.9 (1.0-2.2); BILIRUBIN,TOTAL 0.7 mg/dL (0.2-1.0); CALCIUM 8.9 mg/dL (8.5-10.3); CREATININE 0.7 mg/dL (0.4-1.0); TOTAL PROTEIN 7.2 g/dL (6.7-8.2)
[2018-08-11 11:32] LABS: HB2 TOTAL 13.5 g/dL; HEMOGLOBIN A1C 0.71 g/dL
== END 2018-08-11 07:19 | disposition home or self-care (01) ==
LOC: LAB.F 07:18
PROVIDERS: ATTEND Obstetrics & Gynecology
DX: Z13.1 Encounter for screening for diabetes mellitus (principal)
CPT/HCPCS: 36415; 80053; 83036

== ENCOUNTER 2018-08-12 17:05 | Outpatient (CLI) | payer MEDICARE | END 2018-08-12 17:06 | disposition home or self-care (01) | LOC: DI 17:05 | PROVIDERS: ATTEND Obstetrics & Gynecology | DX: Z53.9 Procedure and treatment not carried out, unspecified reason (principal) ==

== ENCOUNTER 2018-08-26 08:41 | Outpatient (CLI) | payer MEDICARE ==
--- NOTE | 2018-08-26 10:52 | Ultrasound Report ---
Reason: POSTMENOPAUSAL BLEEDING Procedure Date: 08/26/2018 Accession Number: [id number] / [id number] Procedure: US - Transvaginal CPT Code: FULL RESULT: EXAM: PELVIC ULTRASOUND EXAM DATE: 08/26/2018 10:02 AM. CLINICAL HISTORY: Postmenopausal bleeding. COMPARISON: None. TECHNIQUE: Realtime transvaginal pelvic scan performed to identify the uterus and adnexa and as an overview of other pelvic structures, with static image documentation. FINDINGS: Uterus: 5.2 x 2.2 x 3.2 cm, volume 19.1 cc. Retroverted position. Normal overall size and echotexture. Masses: None. Endometrium: 1.4 mm. Normal. Cervix: A 0.5 cm calcified focus is noted in the cervix, nonspecific finding. The cervix is otherwise unremarkable. Right Ovary: 2.1 x 1.4 x 1.5 cm, volume 2.3 cc. Normal echotexture and blood flow. Left Ovary: 1.3 x 0.6 x 0.8 cm, volume 0.3 cc. Visualization is limited, no abnormalities are detected. Free Fluid: None. Other: None. IMPRESSION: No endometrial abnormality is identified. RADIA
== END 2018-08-26 08:42 | disposition home or self-care (01) ==
LOC: DI 08:41
PROVIDERS: ATTEND Obstetrics & Gynecology
DX: N95.0 Postmenopausal bleeding (principal)
CPT/HCPCS: 76830

== ENCOUNTER 2018-09-06 10:51 | Outpatient (CLI) | payer MEDICARE ==
[2018-09-06 11:21] LABS: BASOPHILS # (AUTO) 0.1 10^3/uL (0.0-0.1); BASOPHILS % (AUTO) 0.7 %; EOSINOPHILS # (AUTO) 0.2 10^3/uL (0.0-0.7); EOSINOPHILS % (AUTO) 2.1 %; HGB - HEMOGLOBIN 13.5 g/dL (12.0-16.0); LYMPHOCYTES # (AUTO) 3.4 10^3/uL (1.5-3.5); LYMPHOCYTES % (AUTO) 44.2 %; MEAN CORPUSCULAR HEMOGLOBIN 31.1 pg (27.0-31.0); MEAN CORPUSCULAR VOLUME 91.4 fL (81.0-99.0); MEAN PLATELET VOLUME 6.3 fL (7.9-10.8); MONOCYTES # (AUTO) 0.6 10^3/uL (0.0-1.0); MONOCYTES % (AUTO) 8.3 %; NEUTROPHILS # (AUTO) 3.4 10^3/uL (1.5-6.6); NEUTROPHILS % (AUTO) 44.7 %; PLT - PLATELET COUNT 331 10^3/uL (130-450); RED BLOOD COUNT 4.35 10^6/uL (4.20-5.40); RED CELL DISTRIBUTION WIDTH 14.3 % (12.0-15.0); WHITE BLOOD COUNT 7.7 x10^3/uL (4.8-10.8)
[2018-09-06 11:48] LABS: ALBUMIN 4.3 g/dL (3.2-5.5); ALBUMIN/GLOBULIN RATIO 1.2 (1.0-2.2); BILIRUBIN,TOTAL 0.7 mg/dL (0.2-1.0); CALCIUM 9.3 mg/dL (8.5-10.3); CREATININE 0.6 mg/dL (0.4-1.0)
== END 2018-09-06 10:52 | disposition home or self-care (01) ==
LOC: LAB 10:51
PROVIDERS: ATTEND Obstetrics & Gynecology
DX: Z01.812 Encounter for preprocedural laboratory examination (principal); N81.4 Uterovaginal prolapse, unspecified; E11.9 Type 2 diabetes mellitus without complications
CPT/HCPCS: 36415; 80053; 85025; 86850; 86900; 86901; 93005

== ENCOUNTER 2018-09-07 10:43 | Day surgery (SDC) | payer MEDICARE ==
--- NOTE | 2018-09-06 12:16 | PREOP HISTORY & PHYSICAL ---
DATE OF SERVICE: 09/06/2018 Physician: Juan Pablo Goodwin MD IDENTIFICATION: The patient is a 68-year-old. She is G3, P1. She reached menopause at 58 years of age. CHIEF COMPLAINT: Symptoms as though her uterus has been falling out. The patient states over the last 3 years, she has noted feelings, as though things have been falling out below. These have gotten progressively worse over time. She states that back in January, she was not able to be seen because of scheduling conflicts. She states that this is worse with standing. She also has a CT which shows a dilated left hydroureter. She recently had a urinary tract infection, which was treated with Cipro with success. She does have some difficulty with urine when she sneezes, laughs or coughs and needs to wear a pad for this. She states her child weighed 7 pounds. She denies any difficulty with prolonged pushing or macrosomia. The was complicated with gestational diabetes. PAST MEDICAL HISTORY: Positive for diabetes, hypertension, as well as hepatitis A. PAST SURGICAL HISTORY: Tubal ligation, laparoscopic cholecystectomy and right shoulder surgery as well as cataracts. ALLERGIES: SHE HAS DIFFICULTY TAKING STATINS WHICH CAUSE HER TO "GO CRAZY." CURRENT MEDICATIONS: 1. Insulin 15 international units NPH b.i.d. 2. Metformin 1000 mg b.i.d. HABITS: The patient denies use of tobacco, drinks alcohol only socially. Denies use of drugs. Does do tetrahydrocannabinol on a weekly basis. SOCIAL HISTORY: The patient is . 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 FAMILY HISTORY: Positive for heart disease, pancreatic cancer in her father. She denies any breast cancer, ovarian cancer or endometrial cancer. REVIEW OF SYSTEMS: Negative. She states she is in good health at this time. PHYSICAL EXAMINATION GENERAL: The patient is a well-developed, well-nourished female. She is in no acute distress at this time. Her vital signs are noted. VITAL SIGNS: Her blood pressure is 130/64. Her height is 63, her weight is 172. HEENT: Pupils are equal and round. Extraocular muscles are intact. She shows evidence of previous cataract surgery. Mouth is clear. Thyroid is not palpably enlarged. LUNGS: Lung murry are clear without rales or wheezes. BACK: No spinal or CVA tenderness noted. ABDOMEN: Soft. She shows evidence of previous laparoscopic cholecystectomy. PELVIC: Cervix descends with Valsalva. She also was noted to have cystocele, grade 2-3. She has a large enterocele, rectocele is maybe grade 1-2. IMPRESSION: 1. A 68-year-old G3, P1. 2. Uterine prolapse. 3. Cystocele, enterocele, small rectocele. 4. Diabetes 5. Hypertension PLAN: We will perform laparoscopically assisted vaginal hysterectomy with anterior repair, probable sacrospinous ligament and will follow with a cystoscopy. Pt declines any vaginal tape at this time. Risks and benefits were explained to the patient, including those, but not limited to bleeding, infection, injury to pelvic organs, which include the uterus, tubes, ovaries, bowel, bladder and ureters. She is aware of the potential for DVT with PE as well as postoperative adhesions, which could cause pain, bowel obstruction. She is also aware of the potential for recurrence. She is also aware that since the stitches come near the ureters this may require the need for taking this down intraoperatively. TD: 09/06/2018 10:27 ALEJANDRO
[2018-09-07] MEDS ORDERED: ceFAZolin 2 GM/50 ML 2 GM/50 ML BAG IV ONE (10:57)
--- NOTE | 2018-09-07 11:24 | ANESTHESIA ---
Pre-Anesthesia VS, & Labs - Diagnosis uterovaginal prolapse - Procedure laparoscopic assisted vaginal hysterectomy Vital Signs: Temp Pulse Resp BP Pulse Ox 36.2 C L 60 18 149/65 H 99 09/07/18 11:05 09/07/18 11:05 09/07/18 11:05 09/07/18 11:05 09/07/18 11:05 Height 5 ft 3 in Weight (kg) 77.3 kg Body Mass Index 28.8 - NPO >8 hours - Is Patient ?: Not Applicable - Lab Results Lab results reviewed: Yes Home Medications and Allergies Home Medications: Ambulatory Orders Multivitamin [Multiple Vitamins] 1 each PO DAILY 09/06/18 Papaya/Pineapple Enzyme 1 cap PO DAILY 09/06/18 Turmeric Root Extract [Turmeric] 0 mg PO DAILY 09/06/18 Insulin NPH Human Isophane [Humulin N] 15 units SUBQ BID 05/27/14 Lisinopril 10 mg PO DAILY 05/27/14 metFORMIN [Glucophage] 1,000 mg PO BIDWM 05/27/14 Multivitamin [Multiple Vitamins] 1 each PO DAILY 09/06/18 Papaya/Pineapple Enzyme 1 cap PO DAILY 09/06/18 Turmeric Root Extract [Turmeric] 0 mg PO DAILY 09/06/18 Allergies/Adverse Reactions: Allergies Allergy/AdvReac Type Severity Reaction Status Date / Time [id number] Reductase AdvReac Cramps, Verified 09/06/18 11:35 Inhibitor Anxiety Anes History & Medical History - Anesthetic History Anesthesia Complications: reports: No previous complications Family history of Anesthesia Complications: Denies Family history of Malignant Hyperthermia: Denies - Medical History Cardiovascular: reports: Hypertension, High cholesterol Pulmonary: reports: None Gastrointestinal: reports: None Urinary: reports: None Musculoskeletal: reports: Osteoarthritis Endocrine/Autoimmune: reports: Type 2 diabetes Skin: reports: None Smoking Status: Never smoker - Surgical History General: Colonoscopy Eyes Ears Nose Throat (EENT): Cataracts Gynecologic: Tubal ligation Orthopedic: Other Exam General: Alert (bridge), Oriented x3, Cooperative, No acute distress Dental: Other (bridge) Mouth Openin Fingerbreadth Neck Mobility: Normal Mallampati classification: I Thyromental Distance: 4-6 cm Respiratory: Lungs clear, Normal breath sounds, No respiratory distress, No accessory muscle use Cardiovascular: Regular rate, Normal S1, Normal S2, No murmurs Mental/Cognitive Status: Alert/Oriented X3, Normal for patient Cognitive Status: Within normal limits Plan Anesthesia Type: General Consent for Procedure(s) Verified and Reviewed: Yes Code Status: Attempt Resuscitation ASA classification: 2-Mild systemic disease Is this case an emergency?: No
[2018-09-07] MEDS ORDERED: LACTATED RINGERS 1,000 ML IV ONE ×3 (11:34→16:30)
[2018-09-07] MEDS ORDERED: BUPIVACAINE 0.25%-EPI 1:200000 PF 30 ML VIAL ONE (12:10)
[2018-09-07] MEDS ORDERED: METHYLENE BLUE 0.5% 50 MG/10 ML AMPULE ONE (12:11)
[2018-09-07] MEDS ORDERED: BUPIVACAINE 0.5% PF 30 ML VIAL ONE (12:11)
[2018-09-07] MEDS ORDERED: ESTROGENS, CONJUGATED CREAM 30 GM TUBE ONE (12:17)
[2018-09-07] MEDS ORDERED: BUPIVACAINE 0.5% PF 30 ML VIAL INFIL ONE ×2 (13:30)
[2018-09-07] MEDS ORDERED: BUPIVACAINE 0.25%-EPI 1:200000 PF 30 ML VIAL SUBQ ONE ×2 (13:30)
[2018-09-07] MEDS ORDERED: ePHEDrine 50 MG/ML VIAL IVP ONE (13:50)
[2018-09-07] MEDS ORDERED: KETOROLAC 30 MG/ML VIAL IVP ONE (13:50)
[2018-09-07] MEDS ORDERED: ROCURONIUM 50 MG/5 ML VIAL IVP ONE (13:50)
[2018-09-07] MEDS ORDERED: LIDOCAINE-MPF 2% 5 ML VIAL IM ONE (13:50)
[2018-09-07] MEDS ORDERED: ACETAMINOPHEN 1,000 MG/100 ML 100 ML IV ONE (13:50)
[2018-09-07] MEDS ORDERED: MORPHINE 10 MG/ML VIAL IVP ONE (13:50)
[2018-09-07] MEDS ORDERED: ONDANSETRON 4 MG/2 ML VIAL IVP ONE (13:50)
[2018-09-07] MEDS ORDERED: PROPOFOL 200 MG/20 ML VIAL IVP ONE (13:50)
[2018-09-07] MEDS ORDERED: MIDAZOLAM 2 MG/2 ML VIAL IVP ONE (13:50)
[2018-09-07] MEDS ORDERED: fentaNYL 250 MCG/5 ML VIAL IVP ONE (13:50)
[2018-09-07] MEDS ORDERED: GENTAMICIN 80 MG/2 ML VIAL ONE (15:31)
[2018-09-07] MEDS ORDERED: GENTAMICIN 80 MG/2 ML VIAL IR ONE (15:37)
[2018-09-07] MEDS ORDERED: ESTROGENS, CONJUGATED CREAM 30 GM TUBE VG ONE (15:48)
[2018-09-07] MEDS ORDERED: ONDANSETRON 4 MG/2 ML VIAL IVP PRN (16:22)
[2018-09-07] MEDS ORDERED: oxyCODONE 5 MG TABLET PO PRN (16:22)
[2018-09-07] MEDS ORDERED: LORazepam 2 MG/ML VIAL IVP PRN (16:22)
[2018-09-07] MEDS ORDERED: HYDROmorphone 0.5 MG/0.5 ML SYRINGE IVP PRN (16:22)
[2018-09-07] MEDS ORDERED: KETOROLAC 30 MG/ML VIAL IVP PRN (16:23)
--- NOTE | 2018-09-07 16:29 | OPERATIVE REPORT ---
Operative Report - General Procedure Date: 09/07/18 Planned Procedure: LAVH with BSO and Anterior repare, sacroapinous suspension and cystoscopy Pre-Op Diagnosis: uterine prolaps with grade 3 systocele, enterocele Procedure Performed: Same Post Op Diagnosis: Same - Procedure Note Primary Surgeon: Juan Pablo Goodwin MD Secondary Surgeon: Juan Pablo Alejandre MD Anesthesia Provider: Roberto Salas CRNA Anesthesia Technique: General ET tube Pathology: Uterus with both tubes and overies IV Fluids (mL): 1,900 Estimated Blood Loss (mL): 150 Urine Output (mL): 700 Drain/Tube Type: Other (vaginal packing) Complications: none
--- NOTE | 2018-09-07 16:51 | CONSULTATION NOTE ---
Referring Provider Name of Referring Provider:: Dr. Goodwin Consult Date: 09/07/18 Chief Complaint - Chief Complaint Chief Complaint: scheduled surgery, consulting for chronic disease management. History of Present Illness - Admitted From Admitted From:: Same day surgery - History Obtained From Records Reviewed: yes History obtained from: chart review, patient Exam Limitations: none - History of Present Illness HPI Comment/Other: Jasmin Mata is a 68-year old female with a past medical history of grade 1 rectocele, midline cystocele, diabetes mellitus type 2-insulin dependent, hypertension, hyperlipidemia, uterovaginal prolapse, depression, peripheral neuropathy, osteoarthritis, rotator cuff tear, 1st degree heart block, GERD, chronic hepatitis, recent UTI, and marijuana use, and dental caries. The patient had a scheduled laproscopically assisted vaginal hysterectomy with anterior repair, scrospinous ligament with a cystoscopy which was performed by Dr. Goodwin. The hospitalist team will follow this patient post-op for her first night of stay in the observation unit for management of her chronic conditions being diabetes, and HTN. History - Past Medical History Cardiovascular: reports: Hypertension, High cholesterol Respiratory: reports: None Endocrine/Autoimmune: reports: Type 2 diabetes GI: reports: GERD : reports: Frequency, Other (recent UTI) HEENT: reports: None Psych: reports: Depression Musculoskeletal: reports: Osteoarthritis Derm: reports: None MRSA Hx?: No - Past Surgical History General: reports: Colonoscopy Ortho: reports: Other /HOSIERY REPAIRER: reports: Tubal ligation HEENT: reports: Cataracts Other past surgical history: lap parth, umbilical hernia repair in March of 2018 - Family & Social History Living arrangement: At home - Substance History Use: Uses substance without health or social issues: NONE Abuse: Recurrent use of substance despite neg consequences: NONE Dependence: Experiences withdrawal or developed tolerances: NONE - POLST Patient has POLST: No POLST Status: Full Code Meds/Allgy - Home Medications Home Medications: Ambulatory Orders Medication Instructions Recorded Confirmed Insulin NPH Human Isophane 15 units SUBQ BID 05/27/14 09/07/18 [Humulin N] Lisinopril 10 mg PO DAILY 05/27/14 09/07/18 metFORMIN [Glucophage] 1,000 mg PO BIDWM 05/27/14 09/07/18 Multivitamin [Multiple Vitamins] 1 each PO DAILY 09/06/18 09/07/18 Papaya/Pineapple Enzyme 1 cap PO DAILY 09/06/18 Turmeric Root Extract [Turmeric] 0 mg PO DAILY 09/06/18 09/07/18 - Allergies Allergies/Adverse Reactions: Allergies Allergy/AdvReac Type Severity Reaction Status Date / Time [id number] Reductase AdvReac Cramps, Verified 09/06/18 11:35 Inhibitor Anxiety Exam - Vital Signs Reviewed Vital Signs: Yes Vital Signs: Vital Signs x48h Temp Pulse Resp BP Pulse Ox 09/07/18 16:45 36.3 C L 69 16 129/69 99 09/07/18 16:40 36.7 C 73 16 130/63 100 09/07/18 16:35 36.6 C 68 14 132/62 H 100 09/07/18 16:30 36.6 C 75 14 135/60 H 100 09/07/18 11:05 36.2 C L 60 18 149/65 H 99 - Physical Exam General Appearance: positive: No acute distress, Alert Eyes Bilateral: positive: PERRL ENT: positive: Pharynx nml, No signs of dehydration Neck: positive: Thyroid nml, No JVD, Trachea midline Respiratory: positive: Chest non-tender, No respiratory distress, Breath sounds nml Cardiovascular: positive: Regular rate & rhythm, No gallop Peripheral Pulses: positive: 2+ Abdomen: positive: Non-tender, Nml bowel sounds Back: positive: Nml inspection Skin: positive: No rash, Warm, Dry Extremities: positive: Non-tender, Full ROM, Nml appearance, No pedal edema Neurologic/Psychiatric: positive: Oriented x3, CN's nml (2-12), Motor nml, Sensation nml, Mood/affect nml Reflexes: Bicep (R): 3+, Bicep (L): 3+ Conclusion/Plan - Diagnosis Diagnosis: uterine prolapse. cystocele, enterocele, and small rectocele. kolton betes mellitus type 2-insulin dependence. hypertension. marijuana use. recent UTI - Plan Plan: Monitor post-operatively Manage pain if needed Continue home insulin HOLD Metformin as per hospital protocol Resume Lisinopril in the AM with parameters Telemetry given her post op state and history of 1st degree heart block Be watchful of complications - Lab Results Lab results reviewed: Yes Fish Bones: 09/08/18 05:44 09/08/18 05:44
[2018-09-07] MEDS ORDERED: SODIUM CHLORIDE FLUSH 0.9% 10 ML SYRINGE IVP PRN (17:09)
[2018-09-07] MEDS ORDERED: METOCLOPRAMIDE 10 MG/2 ML VIAL ONE (17:25)
[2018-09-07] MEDS ORDERED: KETOROLAC 15 MG/ML VIAL ONE (17:54)
[2018-09-07] MEDS: LACTATED RINGERS 1,000 ML IV SCH (20:01)
[2018-09-07] MEDS: INSULIN ASPART 300 UNIT/3 ML PEN SUBQ SCH (21:11)
[2018-09-07] MEDS: INSULIN NPH HUMAN 100 UNIT/1 ML 10 ML MDV SUBQ SCH (21:16)
[2018-09-07] MEDS: ACETAMINOPHEN 325 MG TABLET PO PRN (23:51)
[2018-09-08] MEDS: SODIUM CHLORIDE FLUSH 0.9% 10 ML SYRINGE IVP SCH ×2 (03:07→07:28)
[2018-09-08] MEDS: LACTATED RINGERS 1,000 ML IV SCH (05:41)
[2018-09-08 06:15] LABS: BASOPHILS % (AUTO) 0.4 %; EOSINOPHILS # (AUTO) 0.1 10^3/uL (0.0-0.7); EOSINOPHILS % (AUTO) 0.7 %; HGB - HEMOGLOBIN 11.4 g/dL (12.0-16.0); LYMPHOCYTES # (AUTO) 3.1 10^3/uL (1.5-3.5); LYMPHOCYTES % (AUTO) 24.6 %; MEAN CORPUSCULAR VOLUME 93.8 fL (81.0-99.0); MEAN PLATELET VOLUME 6.4 fL (7.9-10.8); MONOCYTES # (AUTO) 0.9 10^3/uL (0.0-1.0); MONOCYTES % (AUTO) 7.3 %; NEUTROPHILS # (AUTO) 8.4 10^3/uL (1.5-6.6); PLT - PLATELET COUNT 299 10^3/uL (130-450); RED BLOOD COUNT 3.67 10^6/uL (4.20-5.40); RED CELL DISTRIBUTION WIDTH 14.4 % (12.0-15.0); WHITE BLOOD COUNT 12.4 x10^3/uL (4.8-10.8)
[2018-09-08 06:21] LABS: BILIRUBIN,TOTAL 0.4 mg/dL (0.2-1.0); CALCIUM 8.4 mg/dL (8.5-10.3); CREATININE 0.6 mg/dL (0.4-1.0); MAGNESIUM 1.7 mg/dL (1.7-2.8); PHOSPHORUS 4.1 mg/dL (2.5-4.6); TOTAL PROTEIN 5.9 g/dL (6.7-8.2)
[2018-09-08] MEDS: ACETAMINOPHEN 325 MG TABLET PO PRN (06:35)
[2018-09-08 06:50] LABS: HB2 TOTAL 12.1 g/dL; HEMOGLOBIN A1C 0.6 g/dL; HEMOGLOBIN A1C % 6.7 % (4.6-6.2)
[2018-09-08] MEDS: INSULIN ASPART 300 UNIT/3 ML PEN SUBQ SCH ×2 (08:15→12:28)
[2018-09-08] MEDS: INSULIN NPH HUMAN 100 UNIT/1 ML 10 ML MDV SUBQ SCH (08:16)
[2018-09-08] MEDS ORDERED: LISINOPRIL 5 MG TABLET PO SCH (09:00)
[2018-09-08] MEDS ORDERED: POLYETHYLENE GLYCOL 3350 17 GM PACKET PO SCH (09:00)
[2018-09-08] MEDS ORDERED: NON FORMULARY MED (Lisinopril [Lisinopril] 10 MG) PO SCH (09:00)
--- NOTE | 2018-09-08 09:47 | PROVIDER PROGRESS NOTE ---
Subjective - General Admit Date: 09/07/18 Procedure Date: 09/07/18 Post Op Days: 1 Procedure Performed: LAVH with Anterior repair Sacrospinous liganent repare cysto - Review of Systems Wound/Incisions: positive: Healing well Drain Output Description: vag packing out General: positive: No symptoms (psin well controled) Pulmonary: positive: No symptoms Cardiovascular: positive: No symptoms Gastrointestinal: positive: No symptoms, Flatus Genitourinary: negative: Flank pain Objective - Patient Data Reviewed Vital Signs: Yes Vital Signs: Vital Signs x48h Temp Pulse Resp BP Pulse Ox 09/08/18 07:35 36.6 C 70 16 105/42 L 98 09/08/18 05:00 36.3 C L 71 18 110/47 L 96 Weight: Weight 09/06/18 09/07/18 09/08/18 23:59 23:59 23:59 Weight (kg) 77.3 kg 82.5 kg Intake & Output: Intake and Output Totals x24h 09/06/18 09/07/18 09/08/18 23:59 23:59 23:59 Intake Total 2450 1776.667 Output Total 975 875 Balance 1475 901.667 - Lab Results Lab Results: 09/08/18 05:44 09/08/18 05:44 Other Lab Results: Lab Results x24hrs 09/08/18 09/08/18 09/08/18 Range/Units 07:34 05:44 05:44 WBC (4.8-10.8) x10^3/uL RBC (4.20-5.40) 10^6/uL Hgb (12.0-16.0) g/dL Hct (37.0-47.0) % MCV (81.0-99.0) fL MCH (27.0-31.0) pg MCHC (32.0-36.0) g/dL RDW (12.0-15.0) % Plt Count (130-450) 10^3/uL MPV (7.9-10.8) fL Neut # (Auto) (1.5-6.6) 10^3/uL Lymph # (Auto) (1.5-3.5) 10^3/uL [place] # (Auto) (0.0-1.0) 10^3/uL Eos # (Auto) (0.0-0.7) 10^3/uL Baso # (Auto) (0.0-0.1) 10^3/uL Absolute Nucleated RBC x10^3/uL Nucleated RBC % /100WBC Sodium 140 (135-145) mmol/L Potassium 4.3 (3.5-5.0) mmol/L Chloride 102 (101-111) mmol/L Carbon Dioxide 32 (21-32) mmol/L Anion Gap 6.0 (6-13) BUN 13 (6-20) mg/dL Creatinine 0.6 (0.4-1.0) mg/dL Estimated GFR (MDRD) 100 (>89) Glucose 124 H (70-100) mg/dL POC Whole Bld Glucose 147 H (70 - 100) mg/dL Glycated Hemoglobin 6.7 H (4.6-6.2) % Estim Average Glucose 146 H (70-100) Calcium 8.4 L (8.5-10.3) mg/dL Phosphorus 4.1 (2.5-4.6) mg/dL Magnesium 1.7 (1.7-2.8) mg/dL Total Bilirubin 0.4 (0.2-1.0) mg/dL AST 18 (10-42) IU/L ALT 19 (10-60) IU/L Alkaline Phosphatase 53 (42-121) IU/L Total Protein 5.9 L (6.7-8.2) g/dL Albumin 3.0 L (3.2-5.5) g/dL Globulin 2.9 (2.1-4.2) g/dL Albumin/Globulin Ratio 1.0 (1.0-2.2) 09/08/18 09/07/18 09/07/18 Range/Units 05:44 21:09 18:25 WBC 12.4 H (4.8-10.8) x10^3/uL RBC 3.67 L (4.20-5.40) 10^6/uL Hgb 11.4 L (12.0-16.0) g/dL Hct 34.5 L (37.0-47.0) % MCV 93.8 (81.0-99.0) fL MCH 31.0 (27.0-31.0) pg MCHC 33.0 (32.0-36.0) g/dL RDW 14.4 (12.0-15.0) % Plt Count 299 (130-450) 10^3/uL MPV 6.4 L (7.9-10.8) fL Neut # (Auto) 8.4 H (1.5-6.6) 10^3/uL Lymph # (Auto) 3.1 (1.5-3.5) 10^3/uL [place] # (Auto) 0.9 (0.0-1.0) 10^3/uL Eos # (Auto) 0.1 (0.0-0.7) 10^3/uL Baso # (Auto) 0.0 (0.0-0.1) 10^3/uL Absolute Nucleated RBC 0.00 x10^3/uL Nucleated RBC % 0.0 /100WBC Sodium (135-145) mmol/L Potassium (3.5-5.0) mmol/L Chloride (101-111) mmol/L Carbon Dioxide (21-32) mmol/L Anion Gap (6-13) BUN (6-20) mg/dL Creatinine (0.4-1.0) mg/dL Estimated GFR (MDRD) (>89) Glucose (70-100) mg/dL POC Whole Bld Glucose 194 H 178 H (70 - 100) mg/dL Glycated Hemoglobin (4.6-6.2) % Estim Average Glucose (70-100) Calcium (8.5-10.3) mg/dL Phosphorus (2.5-4.6) mg/dL Magnesium (1.7-2.8) mg/dL Total Bilirubin (0.2-1.0) mg/dL AST (10-42) IU/L ALT (10-60) IU/L Alkaline Phosphatase (42-121) IU/L Total Protein (6.7-8.2) g/dL Albumin (3.2-5.5) g/dL Globulin (2.1-4.2) g/dL Albumin/Globulin Ratio (1.0-2.2) 09/07/18 09/07/18 Range/Units 16:34 11:31 WBC (4.8-10.8) x10^3/uL RBC (4.20-5.40) 10^6/uL Hgb (12.0-16.0) g/dL Hct (37.0-47.0) % MCV (81.0-99.0) fL MCH (27.0-31.0) pg MCHC (32.0-36.0) g/dL RDW (12.0-15.0) % Plt Count (130-450) 10^3/uL MPV (7.9-10.8) fL Neut # (Auto) (1.5-6.6) 10^3/uL Lymph # (Auto) (1.5-3.5) 10^3/uL [place] # (Auto) (0.0-1.0) 10^3/uL Eos # (Auto) (0.0-0.7) 10^3/uL Baso # (Auto) (0.0-0.1) 10^3/uL Absolute Nucleated RBC x10^3/uL Nucleated RBC % /100WBC Sodium (135-145) mmol/L Potassium (3.5-5.0) mmol/L Chloride (101-111) mmol/L Carbon Dioxide (21-32) mmol/L Anion Gap (6-13) BUN (6-20) mg/dL Creatinine (0.4-1.0) mg/dL Estimated GFR (MDRD) (>89) Glucose (70-100) mg/dL POC Whole Bld Glucose 163 H 146 H (70 - 100) mg/dL Glycated Hemoglobin (4.6-6.2) % Estim Average Glucose (70-100) Calcium (8.5-10.3) mg/dL Phosphorus (2.5-4.6) mg/dL Magnesium (1.7-2.8) mg/dL Total Bilirubin (0.2-1.0) mg/dL AST (10-42) IU/L ALT (10-60) IU/L Alkaline Phosphatase (42-121) IU/L Total Protein (6.7-8.2) g/dL Albumin (3.2-5.5) g/dL Globulin (2.1-4.2) g/dL Albumin/Globulin Ratio (1.0-2.2) - Current Medications Current Medications: Current Medications Generic Name Dose Route Start Last Admin Trade Name Freq PRN Reason Stop Dose Admin Acetaminophen 650 mg 09/07/18 16:26 09/08/18 06:35 Tylenol PO 650 mg Q4HR PRN Administration Pain or Fever > 38C (100.4F) Hydromorphone HCl 0.5 mg 09/07/18 16:22 09/07/18 18:38 Dilaudid Inj Syringe IVP 0.5 mg Q30M PRN Administration Breakthrough Pain Lactated Ringer's 1,000 mls @ 100 mls/hr 09/07/18 19:00 09/08/18 05:41 Lr IV 100 mls/hr .Q10H QUINTEN Administration Insulin Aspart 1 - 5 unit 09/07/18 21:00 09/08/18 08:15 Novolog SUBQ Not Given 0800,1200,1700,2100 [facility] Protocol Insulin Human NPH 15 unit 09/07/18 21:00 09/08/18 08:16 Novolin N SUBQ 15 unit BID QUINTEN Administration Lisinopril 10 mg 09/08/18 09:00 09/08/18 08:17 Zestril PO Not Given DAILY [facility] Ondansetron HCl 4 mg 09/07/18 16:22 09/07/18 16:59 Zofran Inj IVP 4 mg Q6HR PRN Administration Nausea / Vomiting Oxycodone HCl 5 mg 09/07/18 16:22 09/08/18 08:38 Roxicodone PO 5 mg Q4HR PRN Administration PAIN Polyethylene Glycol 17 gm 09/08/18 09:00 09/08/18 08:18 Miralax PO 17 gm DAILY QUINTEN Administration Sodium Chloride 10 ml 09/07/18 17:09 09/07/18 18:38 Normal Saline Flush 0.9% IVP 10 ml PRN PRN Administration NEEDED PER PROVIDER ORDERS Sodium Chloride 10 ml 09/08/18 01:00 09/08/18 07:28 Normal Saline Flush 0.9% IVP Not Given 0100,0900,1700 [facility] - Physical Exam Wound/Incisions: positive: Healing well, Dressing dry and intact General Appearance: positive: No acute distress, Alert Respiratory: positive: Chest non-tender, No respiratory distress, Breath sounds nml Cardiovascular: positive: Regular rate & rhythm, No murmur Abdomen: positive: Non-tender, Nml bowel sounds, No distention Back: negative: CVA tenderness (R), CVA tenderness (L) Skin: positive: Color nml, No rash, Warm, Dry Neurologic/Psychiatric: positive: Oriented x3 Impression/Plan - Problem List Problem List: progressing well plan Discharge when voiding Discharge medication Oxycodone 5 mg Motrin 800 mg murilax 17 gms resume medications insulin N 15 units bid Metformin 1000 mg bid liconpril 10 mg RTC 2 weeks
[2018-09-08 12:16] VITALS: BP 127/69
--- NOTE | 2018-09-08 12:39 | Discharge Plan ---
Discharge Plan Disposition: 01 Home, Self Care Condition: Good Diet: Diabetic No Smoking: If you smoke, Please STOP! Call for help.
--- NOTE | 2018-09-08 13:05 | OPERATIVE REPORT ---
DATE OF SERVICE: 09/07/2018 Physician: Juan Pablo Goodwin MD PREOPERATIVE DIAGNOSIS: Uterine prolapse, grade 3 cystocele, enterocele. POSTOPERATIVE DIAGNOSIS: Uterine prolapse, grade 3 cystocele, enterocele. PROCEDURE PERFORMED: Laparoscopically assisted vaginal hysterectomy with bilateral salpingo-oophorectomy, anterior repair as well as sacrospinous suspension and cystoscopy. SURGEON: Dr. Juan Pablo Goodwin. ROTOR BLADE INSTALLER: Dr. Juan Pablo Alejandre. ANESTHESIA: General via endotracheal tube. CDL FLATBED TRUCK DRIVER: Kedar Salas CRNA. ESTIMATED BLOOD LOSS: 150 mL IV FLUIDS: 1900 mL URINE OUTPUT: 700 mL FINDINGS: Upon entering the abdominal cavity, there was evidence of adhesions to the large bowel to the left pelvic sidewall as well as the left pelvis. Tubes and ovaries appeared to be free of disease. Uterus was small as to be expected for a 68-year-old. She had a very large cystocele. She had a small enterocele. The uterus prolapsed to within 3 cm of the introitus. At the end of the procedure, there was evidence of good flow from both ureteral orifices. On the cervix, there was a small cystic area, which exuded a brown colored substance, which would be suggestive of an endometrioma. PROCEDURE: Following adequate endotracheal anesthesia, the patient was placed in dorsal lithotomy position in [facility]. At this point, she was prepped and draped in the usual fashion. Palumbo catheter placed The cervix was visualized, grasped with a single tooth tenaculum, then dilated to 8 mm with a Hegar dilator, and then a HUMI catheter was placed in the uterine cavity. Uterus was felt to be retroverted. At this point, the bobbin cleaning machine operator's gloves were changed and, following local anesthesia with 0.25% Marcaine, a subumbilical incision was accomplished with a #15 blade, and then a 5 mm trocar and sheath were introduced without difficulty. Left and right lower quadrant incisions were made following a local anesthesia of 0.25% Marcaine with epinephrine, and then trocars were likewise placed. The pelvis was visualized, and there was evidence of adhesions of the large bowel to the left pelvic sidewall. These were transected utilizing a LigaSure. Photographs were taken of both the left and right ovaries, and they appeared to be free of disease. The appendix also appeared to be free of disease. The right fallopian tube was grasped, and then the infundibulopelvic ligament was doubly cauterized and then transected. This was carried down to the round ligament. The anterior leaf of the broad ligament as well as posteriorly were divided, and then a bladder flap was developed utilizing the LigaSure. This was then carried down on the right-hand side of the uterus as close to the uterus as possible and with cautery and transection of the uterine vessels on the right- hand side. The left-hand side was treated in identical fashion. The fallopian tube as well as the infundibulopelvic ligament was isolated, doubly cauterized, transected with the LigaSure. This was carried also to the round ligament and then carried down to the internal os of the cervix. The bladder was dissected free from the lower uterine segment. At this point, attention was paid to the vagina. A weighted speculum was placed and because of the large billowing bladder, the cervix had some difficulty visualization. At this point, it was circumscribed with electrocautery. The anterior cul-de-sac was entered bluntly and then a narrow Yina was placed with evidence of this being in the abdominal cavity. The posterior cul-de-sac was then entered bluntly and then a long weighted speculum was introduced. The left uterosacral, as well as transverse cervical ligament, was clamped with a Manisha clamp, divided with Bautista scissors and then ligated with a Manisha stitch of 0 Vicryl. The right uterosacral ligament was likewise clamped, transected, and ligated with a Manisha stitch of 0 Vicryl. The uterus was free on the left-hand side, an additional clamp was placed on the right-hand side, and the uterus was extirpated. During this process, there was rupture of an anterior cyst on the uterus. This was compatible with an endometrioma. This was marked with a suture, and then the uterus was sent for pathologic evaluation. At this point, the vagina, as well as transverse and uterosacral ligaments were closed laterally utilizing 0 Vicryl. Attention was then changed to the cystocele. Allis was placed roughly 2 cm from the urethral meatus. Then utilizing Metzenbaum scissors, the anterior vagina was dissected free from the bladder, and the edges were clamped utilizing Allis Adairs. The bladder was then pushed away from the vesicovaginal fascia, then pursestring sutures of 0 Vicryl were used to plicate the vesicovaginal fascia to rebuild the anterior bladder wall. This was accomplished with roughly 3 pursestrings. There was evidence of excellent replacement of the bladder into the pelvic cavity. The excess vaginal mucosa was then trimmed, and then this was closed anteriorly with 2-0 Vicryl [id number] interrupted. At this point, attention was turned to the posterior. There was evidence of what appeared to be an enterocele. A division of the posterior vagina HI was made utilizing a #15 blade and then the rectum was dissected bluntly free from the posterior vaginal mucosa. This was carried all the way to the right uterosacral ligament. Then, utilizing a #1 Capio Tevdek, this was placed in the right uterosacral ligament. The other end was placed through the uterosacral ligament on the patient's right-hand side and then tied. Then utilizing a sade fashion, this pulled the apex of the vagina up into the pelvic cavity. The posterior rectal mucosa was then closed, and the sutures were trimmed. There was evidence of good support posteriorly. At this point, the laparoscope was reintroduced into the abdominal cavity, and there was no evidence of bleeding. The pelvis was irrigated free with sterile saline. A cystoscopy was then performed, and there was evidence of good flow through both ureteral orifices. There was evidence of the plication of the posterior bladder. There was no evidence of any bleeding. The vagina was then packed with Premarin cream vag packing. The CO2 was allowed to escape from the abdominal cavity. The ports were removed, and then these were closed utilizing 4-0 Monocryl subcuticular with Dermabond. Patient tolerated the procedure well and was taken to recovery in stable condition. Sponge and needle counts were correct. TD: 09/08/2018 09:58 ALEJANDRO
== END 2018-09-08 12:52 | disposition home or self-care (01) ==
LOC: SDS 10:43 → MS2 16:22 → UNDOADMOB 16:48 → UNDODISOB 09-08 12:52 → SDS 09-08 12:52
PROVIDERS: ATTEND Obstetrics & Gynecology
PROC: 0JQC0ZZ Repair Pelvic Region Subcutaneous Tissue and Fascia, Open Approach (ICD-10-PCS; 2018-09-07)
PROC: 0USG7ZZ Reposition Vagina, Via Natural or Artificial Opening (ICD-10-PCS; 2018-09-07)
PROC: 0UT9FZZ Resection of Uterus, Via Natural or Artificial Opening With Percutaneous Endoscopic Assistance (ICD-10-PCS; principal; 2018-09-07 12:30)
PROC: 0UT2FZZ Resection of Bilateral Ovaries, Via Natural or Artificial Opening With Percutaneous Endoscopic Assistance (ICD-10-PCS; 2018-09-07 12:30)
PROC: 0UT7FZZ Resection of Bilateral Fallopian Tubes, Via Natural or Artificial Opening With Percutaneous Endoscopic Assistance (ICD-10-PCS; 2018-09-07 12:30)
DX: N81.4 Uterovaginal prolapse, unspecified (principal); N81.3 Complete uterovaginal prolapse; E78.5 Hyperlipidemia, unspecified; I10 Essential (primary) hypertension; K21.9 Gastro-esophageal reflux disease without esophagitis; E11.42 Type 2 diabetes mellitus with diabetic polyneuropathy
CPT/HCPCS: 36415; 57240; 57282; 58552; 80053; 83036; 83735; 84100; 85025; A9270; J0131; J0690; J1170; J1580; J1815; J2765; J3010; J7120

== ENCOUNTER 2018-11-25 14:16 | Outpatient (CLI) | payer MEDICARE ==
--- NOTE | 2018-11-28 08:43 | DEXA Report ---
Reason: ENCOUNTER FOR SCREEENING FOR OSTEOPOROSIS Procedure Date: 11/25/2018 Accession Number: [id number] / [id number] Procedure: DEX - Dexa Spine and/or Hip CPT Code: FULL RESULT: EXAM: Dexa Spine and/or Hip DATE: 11/25/2018 3:00 PM CLINICAL HISTORY: ENCOUNTER FOR SCREENING FOR OSTEOPOROSIS TECHNIQUE: Dual energy x-ray absorptiometry (DXA) was performed on a [employer] System. Regions measured are the AP Spine, femoral neck, and if needed forearm. COMPARISON: None. In accordance with the International Society for Clinical Densitometry (ISCD) guidelines, data from previous exams may be reanalyzed using current recommendations and techniques. This is done to allow a more accurate basis for comparison with the current study. FINDINGS: The data for the lumbar spine is as follows: BMD (g/cm/cm) T-SCORE Z-SCORE REGION L1 1.107 -0.2 1.1 L2 1.253 0.4 1.7 L3 1.397 1.6 2.9 L4 1.509 2.6 3.9 TOTAL 1.326 1.2 2.5 NOTE: All evaluable vertebrae are used for classification The data for the hip is as follows: BMD (g/cm/cm) T-SCORE Z-SCORE REGION Neck 0.946 -0.7 0.7 TOTAL 0.979 -0.2 0.8 NOTE: The femoral neck or total proximal femur, whichever is lowest, is used for classification. IMPRESSION: THE WHO CLASSIFICATION BASED ON THE INTERNATIONAL REFERENCE STANDARD IS NORMAL. THE FRACTURE RISK IS NOT INCREASED. RECOMMENDATION: Patients with diagnosis of osteoporosis or osteopenia should have regular bone mineral density assessment. For those eligible for Medicare, routine testing is allowed once every 2 years. Testing frequency can be increased for patients who have rapidly progressing disease or for those who are receiving medical therapy to restore bone mass. COMMENT: World Health Organization (WHO) definitions for osteoporosis and osteopenia: NORMAL BMD: T-score at -1.0 or higher, fracture risk is low OSTEOPENIA BMD: T-score between -1.0 and -2.5, fracture risk is increased. OSTEOPOROSIS BMD: T-score at -2.5 or lower, fracture risk is high. National Osteoporosis Foundation recommends: 1. Obtain adequate dietary calcium (at least 1200 mg per day) and vitamin D (400-800 international units per day). 2. Participate, as appropriate, in regular weightbearing and muscle-strengthening exercise. 3. Avoid tobacco use and reduce alcohol and caffeine intake. 4. For more detailed information see the website at www.NOF.org.
== END 2018-11-25 14:17 | disposition home or self-care (01) ==
LOC: DI 14:16
PROVIDERS: ATTEND Internal Medicine
DX: Z13.820 Encounter for screening for osteoporosis (principal); N95.8 Other specified menopausal and perimenopausal disorders
CPT/HCPCS: 77080

== ENCOUNTER 2018-11-25 14:19 | Outpatient (CLI) | payer MEDICARE ==
--- NOTE | 2018-11-28 10:12 | Mammography Report ---
Reason: ENCOUNTER FOR SCREENING MAMMOGRAM OF BREAST Procedure Date: 11/25/2018 Accession Number: [id number] / [id number] Procedure: JILLIAN - Screening Mammo w/Ben CPT Code: FULL RESULT: EXAM: Screening Mammo w/Ben DATE: 11/25/2018 3:25 PM CLINICAL HISTORY: Screening encounter. History of late childbearing and breast biopsy. TECHNIQUE: Bilateral CC and MLO views were obtained. A right laterally exaggerated CC view was obtained. COMPARISON: 01/24/2015. FINDINGS: The breasts demonstrate scattered fibroglandular densities bilaterally. There are typically benign calcifications bilaterally, predominantly coarse type. No suspicious masses, clustered microcalcifications, or regions of architectural distortion are identified. IMPRESSION: Benign findings RECOMMENDATION: Routine annual screening unless otherwise clinically indicated. BIRADS CATEGORY 2: Benign findings STANDARD QUALIFYING STATEMENTS: 1. This examination was not reviewed with the aid of Computer-Aided Detection (CAD). 2. A negative or benign imaging report should not delay biopsy if clinically suspicious findings are present. Consider surgical consultation if warrented. More than 5% of cancers are not identified by imaging. 3. Dense breasts may obscure an underlying neoplasm. 4. This examination was reviewed with the aid of 3D breast imaging (tomosynthesis).
== END 2018-11-25 14:20 | disposition home or self-care (01) ==
LOC: DI 14:19
PROVIDERS: ATTEND Internal Medicine
DX: Z12.31 Encounter for screening mammogram for malignant neoplasm of breast (principal)
CPT/HCPCS: 77063; 77067

== ENCOUNTER 2019-03-08 14:52 | Outpatient (CLI) | payer MEDICARE ==
--- NOTE | 2019-03-08 16:08 | XRAY Report ---
Reason: PERSONAL HISTORY OF RETAINED FOREIGN BODIES. PT IS DIABETIC Procedure Date: 03/08/2019 Accession Number: [id number] / [id number] Procedure: XR - Foot 2 View LT CPT Code: FULL RESULT: EXAM: LEFT FOOT RADIOGRAPHY EXAM DATE: 03/08/2019 03:06 PM. CLINICAL HISTORY: Personal history of retained foreign bodies. Patient is diabetic. COMPARISON: None. TECHNIQUE: 2 views. FINDINGS: Bones: Normal. No fractures or bone lesions. Joints: Normal. No subluxations. Soft Tissues: No soft tissue gas or radiopaque foreign body is seen along the plantar soft tissues marked with a BB. IMPRESSION: The area marked as concerning on physical examination appears radiographically unremarkable. RADIA
== END 2019-03-08 14:53 | disposition home or self-care (01) ==
LOC: DI 14:52
PROVIDERS: ATTEND Internal Medicine
DX: Z87.821 Personal history of retained foreign body fully removed (principal)

== ENCOUNTER 2019-12-28 10:23 | Outpatient (CLI) | payer MEDICARE ==
--- NOTE | 2019-12-28 12:08 | XRAY Report ---
Reason: DYSPENA Procedure Date: 12/28/2019 Accession Number: [id number] / [id number] Procedure: XR - Chest 2 View X-Ray CPT Code: 85972 Final Report FULL RESULT: EXAM: CHEST RADIOGRAPHY EXAM DATE: 12/28/2019 10:26 AM. CLINICAL HISTORY: DYSPENA. COMPARISON: None. TECHNIQUE: 2 views. FINDINGS: Lungs/Pleura: No focal opacities evident. No pleural effusion. No pneumothorax. Normal volumes. Mediastinum: Heart and mediastinal contours are unremarkable. Other: Degenerative change in the spine. Aorta calcification. IMPRESSION: Clear lungs. No acute findings. RADIA
== END 2019-12-28 10:24 | disposition home or self-care (01) ==
LOC: DI 10:23
PROVIDERS: ATTEND Nurse Practitioner Family
DX: R06.00 Dyspnea, unspecified (principal)
CPT/HCPCS: 71046

== ENCOUNTER 2021-10-30 08:56 | Outpatient (CLI) | payer MEDICARE ==
--- NOTE | 2021-10-30 10:31 | XRAY Report ---
PROCEDURE: Knee 3 View BILAT INDICATIONS: PAIN OF BILATERAL KNEE JOINTS TECHNIQUE: 3 views of the bilateral knee(s) were acquired. COMPARISON: None. FINDINGS: Bones: No fractures or dislocations. Moderate to severe bilateral medial femoral tibial compartment osteoarthritic changes are seen. Moderate bilateral patellofemoral compartment osteoarthritic changes also noted. No suspicious bony lesions. Soft tissues: Right worse than left bilateral suprapatellar joint effusion is seen. No suspicious so ft tissue calcifications. IMPRESSION: 1. Moderate to severe bilateral medial femoral tibial compartment osteoarthritis and moderate bilater al patellofemoral compartment osteophyte is. No fracture or dislocation. 2. Right greater than left bilateral suprapatellar joint effusion. Reviewed by: Niko Villeda MD on 10/30/2021 10:30 AM PST Approved by: Niko Villeda MD on 10/30/2021 10:30 AM PST Station ID: [id number]
== END 2021-10-30 08:57 | disposition home or self-care (01) ==
LOC: DI.S 08:56
PROVIDERS: ATTEND Nurse Practitioner Family
DX: M17.0 Bilateral primary osteoarthritis of knee (principal); M25.462 Effusion, left knee; M25.461 Effusion, right knee

== ENCOUNTER 2021-12-23 09:27 | Outpatient (CLI) | payer MEDICARE ==
--- NOTE | 2021-12-25 09:59 | DEXA Report ---
PROCEDURE: Dexa Spine and/or Hip INDICATIONS: POST MENOPAUSAL TECHNIQUE: Dual energy x-ray absorptiometry (DXA) was performed on a [employer] System. Regions measur ed are the AP Spine, femoral neck, and if needed forearm. COMPARISON: DEXA 11/25/2018 FINDINGS: Lumbar Spine: Bone Mineral Density 1.331 g/cm/cm,T score 1.3, compared to 1.2 Left Hip: Bone Mineral Density 0.943 g/cm/cm,T score -0.5, compared to -0.2 Left Femoral Neck: Bone Mineral Density 0.935 g/cm/cm, T score 0.7, compared to -0.7 (T score greater or equal to -1.0: NORMAL) (T score from -1.1 to -2.4: OSTEOPENIA) (T score less than or equal to -2.5 to: OSTEOPOROSIS) Impression: Approximate 4% bone mineral density loss within the left hip, although considered still within normal limits of bone mineral density. Patients with diagnosis of osteoporosis or osteopenia should have regular bone mineral density assess ment. For those eligible for Medicare, routine testing is allowed once every 2 years. Testing frequ ency can be increased for patients who have rapidly progressing disease or for those who are receivin g medical therapy to restore bone mass. Reviewed by: Raine Pendleton MD on 12/25/2021 9:57 AM PDT Approved by: Raine Pendleton MD on 12/25/2021 9:57 AM PDT Station ID: [id number]
== END 2021-12-23 09:28 | disposition home or self-care (01) ==
LOC: DI 09:27
PROVIDERS: ATTEND Nurse Practitioner Family
DX: Z78.0 Asymptomatic menopausal state (principal)

== ENCOUNTER 2023-12-23 07:37 | Outpatient (CLI) | payer MEDICARE ==
[2023-12-23 15:17] LABS: BASOPHILS # (AUTO) 0.1 10^3/uL (0.0-0.1); BASOPHILS % (AUTO) 1.1 %; EOSINOPHILS # (AUTO) 0.2 10^3/uL (0.0-0.7); EOSINOPHILS % (AUTO) 3.3 %; HCT - HEMATOCRIT 39.5 % (37.0-47.0); LYMPHOCYTES # (AUTO) 3.1 10^3/uL (1.5-3.5); LYMPHOCYTES % (AUTO) 42.7 %; MEAN CORPUSCULAR HEMOGLOBIN 30.4 pg (27.0-31.0); MEAN CORPUSCULAR HGB CONC 32.9 g/dL (32.0-36.0); MEAN CORPUSCULAR VOLUME 92.3 fL (81.0-99.0); MEAN PLATELET VOLUME 9.4 fL (7.9-10.8); MONOCYTES # (AUTO) 0.7 10^3/uL (0.0-1.0); NEUTROPHILS # (AUTO) 3.2 10^3/uL (1.5-6.6); NEUTROPHILS % (AUTO) 43.6 %; PLT - PLATELET COUNT 361 10^3/uL (130-450); RED BLOOD COUNT 4.28 10^6/uL (4.20-5.40); RED CELL DISTRIBUTION WIDTH 13.5 % (12.0-15.0); WHITE BLOOD COUNT 7.2 x10^3/uL (4.8-10.8)
[2023-12-23 16:17] LABS: ALBUMIN 4.2 g/dL (3.2-5.5); ALBUMIN/GLOBULIN RATIO 1.4 (1.0-2.2); BILIRUBIN,TOTAL 0.4 mg/dL (0.2-1.0); CALCIUM 9.7 mg/dL (8.5-10.3); CREATININE 0.8 mg/dL (0.6-1.3); POTASSIUM 5.6 mmol/L (3.5-4.5); TOTAL PROTEIN 7.2 g/dL (6.4-8.9)
[2023-12-23 16:25] LABS: THYROID STIMULATING HORMONE 1.76 uIU/mL (0.34-5.60)
[2023-12-23 20:46] LABS: ESTIMATED AVERAGE GLUCOSE 301 mg/dL (70-100); HEMOGLOBIN A1c% 12.1 % (4.27-6.07)
== END 2023-12-23 07:38 | disposition home or self-care (01) ==
LOC: LAB.S 07:37
PROVIDERS: ATTEND Physician Assistant Medical
DX: E11.9 Type 2 diabetes mellitus without complications (principal); Z13.9 Encounter for screening, unspecified
CPT/HCPCS: 36415; 80053; 83036; 84443; 85025